=== PATIENT | female | born 1955 | race Caucasian/White ===

== ENCOUNTER 2020-11-17 17:40 | Emergency (ER) | payer BC, SELFPAY ==
--- NOTE | ~2020-11-17 | XR_ITS ---
EXAMINATION: XR ankle RT min 3V DATE: 11/17/2020 18:25 INDICATION: Right ankle injury and pain. TECHNIQUE: 4 views of right ankle were obtained. COMPARISON: None. FINDINGS: Bone alignment is normal. No fracture. There is diffuse osteopenia. There is mild ankle hernando nt osteoarthritis. There is mild osteoarthritis of talonavicular joint. There is ankle soft tissue sw elling. IMPRESSION: 1. Mild polyarticular osteoarthritis. Reviewed, dictated and finalized at location A.
--- NOTE | ~2020-11-17 | XR_ITS ---
EXAMINATION: XR foot RT min 3V DATE: 11/17/2020 18:26 INDICATION: Right foot injury and pain. TECHNIQUE: 4 views of right foot were obtained. COMPARISON: None. FINDINGS: Bone alignment is normal. No fracture. There is diffuse osteopenia. There is mild osteoarth ritis of first metatarsophalangeal joint and some of the interphalangeal and midfoot joints. IMPRESSION: 1. Mild polyarticular osteoarthritis. Reviewed, dictated and finalized at location A.
[2020-11-17 17:52] VITALS: BP 117/90; PULSE 80; RESP 14; TEMP 36.6; O2SAT 100
--- NOTE | 2020-11-17 18:01 | ED.LOWEXIN ---
HPI - Extremity Injury (Lower) General Chief Complaint: Extremity Injury, Lower Stated Complaint: Possible injury to right Ankle Time Seen by Provider: 11/17/20 18:01 Source: patient and RN notes reviewed Mode of arrival: ambulatory Limitations: no limitations History of Present Illness HPI Narrative: 65-year-old female presents to the [facility] after a near fall yesterday at physical therapy. Patient has been in a wheelchair, started walking recently and in physical therapy. Patient was walking between 2 bar when her knee gave out and she twisted her ankle. Swelling noted to the lateral aspect of right ankle. Reports pain across the dorsal aspect of the foot into her toes. Related Data Home Medications Medication Instructions Recorded Confirmed baclofen 10 mg PO BID PRN 11/17/20 11/17/20 biotin 5,000 mcg PO BID 11/17/20 11/17/20 cholecalciferol (vitamin D3) 125 mcg PO DAILY 11/17/20 11/17/20 [Vitamin D3] cyanocobalamin (vitamin B-12) 1 mcg SUBCUT Q3H6XD 11/17/20 11/17/20 duloxetine 20 mg PO DAILY 11/17/20 11/17/20 fluoride (sodium) [PreviDent 5000 1 applic DENTAL QAM AND QPM 11/17/20 11/17/20 Dry Mouth] gabapentin 800 mg PO QID 11/17/20 11/17/20 hydrocodone-acetaminophen 1 tablet PO BID PRN 11/17/20 11/17/20 methylprednisolone sod suc(PF) 1 g IV WEEKLY 11/17/20 11/17/20 omeprazole 40 mg PO DAILY 11/17/20 11/17/20 potassium chloride 20 meq PO DAILY 11/17/20 11/17/20 pyridoxine (vitamin B6) 100 mg PO DAILY 11/17/20 11/17/20 sulfamethoxazole-trimethoprim 1 tablet PO Q48H 11/17/20 11/17/20 thiamine HCl (vitamin B1) 100 mg PO DAILY 11/17/20 11/17/20 tramadol 50 mg PO BID PRN 11/17/20 11/17/20 turmeric root extract 500 mg PO DAILY 11/17/20 11/17/20 Allergies Allergy/AdvReac Type Severity Reaction Status Date / Time codeine Allergy Mild Itching Verified 11/17/20 18:30 Review of Systems Review of Systems: All systems reviewed & are unremarkable except as noted in HPI and below Constitutional: Constitutional: Reports no additional constitutional complaints, Denies chills and Denies fever(s) Eyes: Eyes: Reports no additional eye complaints ENT: Reports system reviewed and no additional complaints, except as documented Cardiovascular: Cardiovascular: Reports no additional cardiovascular complaints Respiratory: Respiratory: Reports no additional respiratory complaints Musculoskeletal: Musculoskeletal: Reports as per HPI, Reports arthralgias (right ankle) and Reports joint swelling (right ankle) Integumentary/Breasts: Skin/Breast: Reports system reviewed and no additional complaints, except as docu Neurologic: Reports numbness (Chronic bilateral legs) Psychiatric: Psychiatric: Reports no additional psychiatric complaints Allergic/Immunologic: Allergic/Immunologic: Reports no additional allergic/immunologic complaints [facility] Past Medical History Medical History (Updated 11/17/20 @ 19:19 by Chelsea Banegas) Depression H/O gastroesophageal reflux (GERD) Surgical History Surgical History (Updated 11/17/20 @ 19:19 by Chelsea Banegas) History of lumbar surgery Social History Social History (Updated 11/17/20 @ 19:20 by Chelsea Banegas) Living arrangements: with family Additional living arrangements comments: Occupation/Education: retired Gender identity (if verbalized by the patient): Female Comments At the time of my signature, I reviewed and agree with the nursing past medical, surgical, social, and family history. There is no relevant family history pertinent to the patient complaint. Exam Const: General: no acute distress and alert Nutritional Appearance: well nourished Orientation/consciousness: patient oriented x3 HENMT: Head: normal to inspection Neck: Neck: normal visual inspection, no lymphadenopathy and no meningeal signs Chest: Chest palpation & inspection: normal inspection of the chest Resp: Effort & Inspection: normal respiratory effort Auscultation: clear to ausc
== END 2020-11-17 18:48 | disposition home or self-care (01) ==
PROVIDERS: Emergency Provider Nurse Practitioner; PCP Internal Medicine
DX: S93.401A Sprain of unspecified ligament of right ankle, initial encounter (principal); S96.911A Strain of unspecified muscle and tendon at ankle and foot level, right foot, initial encounter; X50.9XXA Other and unspecified overexertion or strenuous movements or postures, initial encounter; K21.9 Gastro-esophageal reflux disease without esophagitis
CPT/HCPCS: 73610; 73630; 99203; G0463

== ENCOUNTER 2021-07-31 19:36 | Emergency (ER) | payer MEDICARE, BC, OTHER, SELFPAY ==
[2021-07-31 19:55] VITALS: BP 132/73; PULSE 90; RESP 16; TEMP 36.8; O2SAT 99
--- NOTE | 2021-07-31 20:21 | ED.FEMALEGU ---
HPI - Female Genitourinary General Chief complaint: Urogenital-Female Stated complaint: Urinary Problem Time Seen by Provider: 07/31/21 20:22 Source: patient and RN notes reviewed Mode of arrival: ambulatory Limitations: no limitations History of Present Illness HPI Narrative: 66-year-old female presents with concern for urinary tract infection. She reports symptoms started on Thursday and worsened today. She reports she has been getting frequent urinary tract infections at least once a month. She reports she has an appointment for a urology test next week. She reports her last infection was 1 month ago and she was on Macrobid, her antibiotic prior to that was Bactrim. She reports frequency, urgency, incontinence. Denies body aches, chills, fever, back pain, abdominal pain, nausea, vomiting MD elicited complaint: UTI Related Data Home Medications Medication Instructions Recorded Confirmed baclofen 10 mg PO BID PRN 11/17/20 07/31/21 biotin 5,000 mcg PO BID 11/17/20 07/31/21 cholecalciferol (vitamin D3) 125 mcg PO DAILY 11/17/20 07/31/21 [Vitamin D3] cyanocobalamin (vitamin B-12) 1 mcg SUBCUT Q3H6XD 11/17/20 07/31/21 duloxetine 20 mg PO DAILY 11/17/20 07/31/21 fluoride (sodium) [PreviDent 5000 1 applic DENTAL QAM AND QPM 11/17/20 07/31/21 Dry Mouth] gabapentin 800 mg PO QID 11/17/20 07/31/21 hydrocodone-acetaminophen 1 tablet PO BID PRN 11/17/20 07/31/21 methylprednisolone sod suc(PF) 1 g IV WEEKLY 11/17/20 07/31/21 omeprazole 40 mg PO DAILY 11/17/20 07/31/21 potassium chloride 20 meq PO DAILY 11/17/20 07/31/21 pyridoxine (vitamin B6) 100 mg PO DAILY 11/17/20 07/31/21 sulfamethoxazole-trimethoprim 1 tablet PO Q48H 11/17/20 11/17/20 thiamine HCl (vitamin B1) 100 mg PO DAILY 11/17/20 07/31/21 tramadol 50 mg PO BID PRN 11/17/20 07/31/21 turmeric root extract 500 mg PO DAILY 11/17/20 07/31/21 Allergies Allergy/AdvReac Type Severity Reaction Status Date / Time codeine Allergy Mild Itching Verified 07/31/21 20:16 Review of Systems Review of Systems: CONSTITUTIONAL: Denies malaise, chills, sweats, or fever. CARDIOVASCULAR: Denies chest pain, palpitations, or edema. RESPIRATORY: Denies cough or dyspnea. GASTROINTESTINAL: Denies abdominal pain, nausea, vomiting, diarrhea GENITOURINARY: Reports dysuria, frequency, urgency, hematuria. Denies flank pain or hematuria. SKIN: Denies rash or itching. MUSCULOSKELETAL: Denies back pain or myalgia. All systems reviewed & are unremarkable except as noted in HPI and below PMFSH Past Medical History Medical History (Updated 07/31/21 @ 20:28 by Chelsea Davis NP) Depression H/O gastroesophageal reflux (GERD) Surgical History Surgical History (Updated 11/17/20 @ 19:19 by Chelsea Banegas APRN) History of lumbar surgery Social History Social History (Updated 11/17/20 @ 19:20 by Chelsea Banegas APRN) Additional living arrangements comments: Gender identity (if verbalized by the patient): Female Comments At time of signature, agree with nursing past medical, surgical, social and family history. There is no relevant family history pertinent to the presenting complaint Exam Narrative: GENERAL: Well-appearing, well-nourished, and in no acute distress. HEAD: Normocephalic. EYES: PERRLA, conjunctivae clear. NECK: Supple. No lymphadenopathy CHEST: Clear to auscultation. No respiratory distress. HEART: Regular rate and rhythm. ABDOMEN: Soft, nontender upon palpation, nondistended, normal active bowel sounds, no palpable or pulsatile masses, no guarding. No CVA tenderness SKIN: Warm, dry, no rash. NEURO: Alert and oriented x3. PSYCH: Normal mood and affect Course Course Emergency Course: Patient is aware of diagnosis, understands and agrees to treatment plan. Anticipatory guidance given. Patient agrees to follow-up as directed and is aware of reasons to seek care at the emergency department. Portions of this record may have been created with voice recogn
== END 2021-07-31 20:40 | disposition home or self-care (01) ==
PROVIDERS: Emergency Provider Nurse Practitioner; PCP Internal Medicine
DX: N39.0 Urinary tract infection, site not specified (principal); K21.9 Gastro-esophageal reflux disease without esophagitis
CPT/HCPCS: 81003; 87077; 87086; 87088; 99213; G0463

== ENCOUNTER 2024-08-20 19:13 | Emergency (ER) | payer MEDICARE, SELFPAY ==
--- OUTSIDE RECORDS SUMMARY | 2024-08-20 19:16 | XMS_ITS | Encounter Summary ---
Author Organization [facility] Address [address] [place] [address] Phone Care Team Providers Care Humanities Department Chair Name Role Phone Shamir Sadler MD Primary Care Provider [phone] [phone] Reason for Visit * Reason Comments Medication Refill Encounter Details Date Type Department Care Team (Late st Contact Info) Description 08/17/2023 Refill [facility] [address] [place] [address] Prasanth Mart, EDUCATION REP, MANAGER RESIDENTIAL [address] [place] [address] Medication Refill Social History Tobacco Use Types Packs/Day Years Used Date Smoking Tobacco: Never Smokeless Tobacco: Never Alcohol Use Standard Drinks/Week Comments Never 0 (1 standard drink = 0.6 oz pur e alcohol) PHQ-2 Answer Date Recorded Total Score - Questions 1-9 6 09/14 Sexually Active Control Partners Comments Not Currently Male Comments Unknown Sex and Gender Information Value Date Recorded Sex Assigned at Female 10/27/2022 3:41 PM CDT Legal Sex Female 10:39 PM CDT Gender Identity Female 10/27/2022 3:41 PM CDT Sexual Orientation Not on file documented as of this encounter Plan of Treatment Not on file documented as of this encounter Goals Goal Patient Goal Type Associated Problems Recent Progress Patient-Stated? 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 Goal/Objective: Increase coping skills. Anticipated Time Frame for Goal Completion: 6 months Goal Reviewed with: patient Readiness to change: Ready to change Department associated with goal: [facility] Steps to achieve goal: will identify at least two ways their behavioral health impacts their physical health and vice versa. will identify at least two ways/skills/habits to reduce exacerbation of co- occurring disorders. will implement at least one new way/skill/habit to reduce exacerbation of co-occurring disorders Will attend individual and/or group session at least 1x/month at least 6 sessions documented as of this encounter Visit Diagnoses Not on filedocumented in this encounter Additional Health Concerns Assessment Noted Time PHQ-9 Depression Total Score: 6 10/08/19 10:00 AM CDT documented as of this encounter Care Teams Humanities Department Chair Relationship Specialty Start Date End Date Shamir Sadler MD [facility] [place] [address] PCP - General Internal Medicine 08/19/22 documented as of this encounter
--- OUTSIDE RECORDS SUMMARY | 2024-08-20 19:16 | XMS_ITS | Clinical Summary ---
Author Organization [facility] Address [address] [place] [address] Care Team Providers Care Photography Spotter Name Role Phone Unavailable Primary Care Provider Unavailabl e Allergies Active Allergy Reactions Criticality Noted Date Comments Codeine Itching Medium 09/03/2018 Medications Calcium-Phosphorus- Vitamin D 250-107-500 MG-MG-UNIT chewable tablet Chew. Active Biotin 1000 MCG tablet Take 5,000 mcg by mouth. Active vitamin B-12 (CYANOCOBALAMIN) 1000 MCG tablet Take 1,000 mcg by mouth. Active ondansetron ODT (ZOFRAN-ODT) 4 MG disintegrating tablet Take 1 tablet (4 mg total) by mouth every 12 (twelve) hours as needed for nausea or vomiting for up to 30 doses. 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 Immunizations Immunization Administration Dates Next Due Influenza, Unspecified 09/21/2018(Deferr ed: Received outside of this facility) Social History Tobacco Use Types Packs/Day Years Used Date Smoking Tobacco: Never Alcohol Use Standard Drinks/Week Comments Not Currently 0 (1 standard drink = 0.6 oz pur e alcohol) Comments Unknown Sex and Gender Information Value Date Recorded Sex Assigned at Not on file Legal Sex Female 12:05 PM EDT Gender Identity Not on file Sexual Orientation Not on file Last Filed Vital Signs Vital Sign Reading Time Taken Comments Blood Pressure 125/81 09/29/2018 7:26 AM CDT Pulse 101 09/29/2018 7:26 AM CDT Temperature 35.9 C (96.7 F) 09/29/2018 7:15 AM CDT Respiratory Rate 18 09/29/2018 7:15 AM CDT Oxygen Saturation 100% 09/29/2018 7:15 AM CDT Inhaled Oxygen Concentration - - Weight 66.3 kg (146 lb 1.6 oz) 09/26/2018 6:47 A M CDT Height 170.2 cm (5' 7) 09/20/2018 8:36 PM CDT Body Mass Index 22.88 09/20/2018 8:36 PM CDT Plan of Treatment Not on file Advance Directives * Full Resuscitation (Latest Code Status on File) Date Activated Date Inactivated Comments 09/20/2018 9:24 PM 09/29/2018 6:43 PM * Full Resuscitation Date Activated Date Inactivated Comments 09/03/2018 5:46 PM 09/14/2018 10:19 PM
--- OUTSIDE RECORDS SUMMARY | 2024-08-20 19:16 | XMS_ITS | Encounter Summary ---
Author Organization [facility] Address [address] [place] [address] [place] [address] Care Team Providers Care Bulb Sorter Name Role Phone Shamir Sadler MD Primary Care Provider [phone] Encounter Details Date Type Department Care Team (Late st Contact Info) Description 01/23/2021 [facility] Unknown, Provider Social History Tobacco Use Types Packs/Day Years Used Date Smoking Tobacco: Never Smokeless Tobacco: Never Alcohol Use Standard Drinks/Week Comments No 0 (1 standard drink = 0.6 oz pur e alcohol) Comments Unknown Sex and Gender Information Value Date Recorded Sex Assigned at Not on file Legal Sex Female 6:24 AM HHAS Gender Identity Not on file Sexual Orientation Not on file documented as of this encounter Functional Status * Is person deaf or have serious hearing difficulty? Answer Date of Assessment Author No 09/15/2018 7:28 AM Debbi Amor RN * Is person blind or have serious difficulty seeing? Answer Date of Assessment Author No 09/15/2018 7:28 AM Debbi Amor RN * Does person have serious difficulty walking/climbing stairs? Answer Date of Assessment Author Yes 09/15/2018 7:28 AM Debbi Amor RN * Does person have difficulty dressing/bathing? Answer Date of Assessment Author Yes 09/15/2018 7:28 AM Debbi Amor RN * Does person have difficulty doing errands alone? Answer Date of Assessment Author Yes 09/15/2018 7:28 AM Debbi Amor RN documented as of this encounter Mental Status * Does person have difficulty concentrating/remembering/making decisions? Answer Entry Date Author No 09/15/2018 7:28 AM Debbi Amor RN documented in this encounter Plan of Treatment Not on file documented as of this encounter Visit Diagnoses Not on filedocumented in this encounter Care Teams Bulb Sorter Relationship Specialty Start Date End Date Shamir Sadler MD PCP - General Internal Medicine 12/06/19 documented as of this encounter
--- OUTSIDE RECORDS SUMMARY | 2024-08-20 19:16 | XMS_ITS | Encounter Summary ---
Author Organization [facility] Address [address] [place] [address] 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 Answer Entry Date Author No 09/15/2018 7:28 AM CDT Debbi Werner RN documented in this encounter Plan of Treatment Not on file documented as of this encounter Visit Diagnoses Not on filedocumented in this encounter Additional Health Concerns Infection Onset Date Last Indicated Resolved Time COVID-19 Under Investigation 09/30/2019 09/30/2019 09/30/2019 10:06 PM CDT documented as of this encounter Care Teams Chargeback Analyst Relationship Specialty Start Date End Date Shamir Sadler MD PCP - General Internal Medicine 12/06/19 documented as of this encounter
--- OUTSIDE RECORDS SUMMARY | 2024-08-20 19:16 | XMS_ITS | Encounter Summary ---
Author Organization [facility] Address [address] [place] [address] 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
--- OUTSIDE RECORDS SUMMARY | 2024-08-20 19:16 | XMS_ITS | Encounter Summary ---
Author Organization [facility] Address [address] [place] [address] [place] [address] Care Team Providers Care Tobacco Prevention Health Educator Name Role Phone Shamir Sadler MD Primary Care Provider [phone] [phone] Encounter Details Date Type Department Care Team (Late st Contact Info) Description 06/29/2020 [facility] Unknown, Provider Social History Tobacco Use Types Packs/Day Years Used Date Smoking Tobacco: Never Smokeless Tobacco: Never Alcohol Use Standard Drinks/Week Comments No 0 (1 standard drink = 0.6 oz pur e alcohol) Comments Unknown Sex and Gender Information Value Date Recorded Sex Assigned at Not on file Legal Sex Female 6:24 AM YARN MAN Gender Identity Not on file Sexual Orientation [...] on filedocumented in this encounter Care Teams Tobacco Prevention Health Educator Relationship Specialty Start Date End Date Shamir Sadler MD PCP - General Internal Medicine 12/06/19 documented as of this encounter
--- OUTSIDE RECORDS SUMMARY | 2024-08-20 19:16 | XMS_ITS | Encounter Summary ---
Author Organization [facility] Address [address] [place] [address] 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
--- OUTSIDE RECORDS SUMMARY | 2024-08-20 19:16 | XMS_ITS | Clinical Summary ---
Author Organization [facility] Address [address] [place] [address] Phone Care Team Providers Care Medical Scientific Officer Name Role Phone Shamir Sadler MD Primary Care Provider [phone] [phone] Allergies Active Allergy Reactions Criticality Noted Date Comments Codeine Itching Low 09/20/2013 Medications olmesartan (BENICAR) 20 mg tablet Take 10 mg by mouth daily. Active predniSONE (DELTASONE) 20 mg tablet Start 09/21. One twice a day for 4 days and one daily 14 Tab None 4 Active HYDROcodone-mariaelena taminophen (NORCO) 5-325 mg tablet Take 1 Tab by mouth every 4 hours as needed for Pain, Moderate (dose may be doubled if tolerated.). Take p.c. 20 Tab 0 4 Active diazepam (VALIUM) 5 mg tablet Take 1 Tab by mouth 3 times daily as needed (one half or one 3 times a day when necessary muscle relaxation). 15 Tab 0 4 Active Active Problems No known active problems Social History Tobacco Use Types Packs/Day Years Used Date Smoking Tobacco: Never Alcohol Use Standard Drinks/Week Comments No 0 (1 standard drink = 0.6 oz pur e alcohol) Comments No Sex and Gender Information Value Date Recorded Sex Assigned at Not on file Legal Sex Female 5:44 AM FOUR H CLUB AGENT Gender Identity Not on file Sexual Orientation Not on file Last Filed Vital Signs Vital Sign Reading Time Taken Comments Blood Pressure 114/76 09/07/2021 4:23 PM CDT Pulse 78 09/07/2021 4:23 PM CDT Temperature 36.9 C (98.5 F) 09/07/2021 4:23 PM CDT Respiratory Rate 16 09/07/2021 4:23 PM CDT Oxygen Saturation 98% 09/07/2021 4:23 PM CDT Inhaled Oxygen Concentration - - Weight 63 kg (139 lb) 09/07/2021 4:23 PM CDT Height 170.2 cm (5' 7) 09/07/2021 4:23 PM CDT Body Mass Index 21.77 09/07/2021 4:23 PM CDT Plan of Treatment Health Maintenance Due Date Last Done Comments DIABETES ANNUAL RETINAL EXAM 1974 DIABETES MICROALBUMIN ANNUAL SCREEN 1974 LDL CHOLESTEROL ANNUAL 1974 PNEUMOCOCCAL VACCINE 50+ YEARS (1 of 2 - PCV) 05/11/18 76 BREAST CANCER SCREENING 1996 COLORECTAL SCREENING 2001 Colorectal Cancer Screening 2001 FIT-DNA Q 3 years 2001 FIT/FOBT Q 1 year 2001 Flex Sig/CT Colonography Q 5 years 2001 ZOSTER VACCINE (2 of 3) 04/19/2015 02/22/2015 DIABETES ANNUAL FOOT EXAM 01/01/2018 01/01/2017 DTAP/TDAP/TD VACCINES (2 - Td or Tdap) 03/14/2018 DIABETES HBA1C Q 6 MONTHS 12/01/2020 05/31/2020 OSTEOPOROSIS SCREENING 2021 INFLUENZA VACCINE (#1) 2023 RSV VACCINE (60+ or ) (1 - 1-dose 75+ series) 2031 Insurance MEDICARE Care Teams Medical Scientific Officer Relationship Specialty Start Date End Date Shamir Sadler MD PCP - General Internal Medicine 09/20/13
--- OUTSIDE RECORDS SUMMARY | 2024-08-20 19:16 | XMS_ITS | Continuity of Care Document ---
Author Organization [facility] Address [address] [place] [address] Phone Care Team Providers Care Camper Assembler Name Role Phone Shantanu Horne MD Unavailable Unavailable Procedures Procedure Date MRI OF NECK, SPINE W/O CONTRAST 020 MRI, SPINAL CANAL W/O CONTRAST 20 Advance Directives Directive Yes / No Effective Date File Name No Information Encounters Encounter Description Practice Location Reason(s) For Visit Diagnoses Date Provider Providers Copied on Encounter [facility], [address], [place], [place], [id number], [place] tel:[phone] [facility] No Information Ozzie Fournier. [address] [place], [place], [id number], [place]. tel:[phone] Referring Provider: John Majano, [facility] [address] , [place], [address]. tel:[phone] Family History Family Member Type Diagnosis Age At Onset No Information Payers Payer name Insurance type Covered constitution party ID Authoriza tion(s) [facility] [id number] Social History Type Description Quantity Date Captured Comments Sex Female Smoking Status No Information Chief Complaint And Reason For Visit No Information Reason For Referral Reason For Referral No Information History Of Present Illness Encounter Date Complaint History Of Prese nt Illness No Information Functional Status Date Functional Assessmen t No Information Instructions Date Instruction Additional Infor mation No Information Assessments Type Assessment Date No Information Patient Care Teams Name Effective Dates (start - stop) Status Members No Information
--- OUTSIDE RECORDS SUMMARY | 2024-08-20 19:16 | XMS_ITS | Encounter Summary ---
Author Organization [facility] Address [address] [place] [address] [place] [address] Care Team Providers Care Innersole Fitter Name Role Phone Shamir Sadler MD Primary Care Provider [phone] Encounter Details Date Type Department Care Team (Late st Contact Info) Description 10/06/2018 [facility] DEPT Unknown, Provider Social History Tobacco Use Types Packs/Day Years Used Date Smoking Tobacco: Never Smokeless Tobacco: Never Alcohol Use Standard Drinks/Week Comments No 0 (1 standard drink = 0.6 oz pur e alcohol) Comments Unknown Sex and Gender Information Value Date Recorded Sex Assigned at Not on file Legal Sex Female 6:24 AM AIRCRAFT NAVIGATOR Gender Identity Not on file Sexual Orientation [...] documented as of this encounter Care Teams Innersole Fitter Relationship Specialty Start Date End Date Shamir Sadler MD PCP - General Internal Medicine 12/06/19 documented as of this encounter
--- OUTSIDE RECORDS SUMMARY | 2024-08-20 19:16 | XMS_ITS | Encounter Summary ---
Author Organization [facility] Address [address] [place] [address] Phone Care Team Providers Care Electric Gas Appliances Demonstrator Name Role Phone Shamir Sadler MD Primary Care Provider [phone] Reason for Visit * Reason Comments Medication Refill Encounter Details Date Type Department Care Team (Late st Contact Info) Description 04/25/2024 Refill [facility] [address] [place] [address] Prasanth Mart, INTER COM INSTALLER, WHARF TENDER [address] [place] [address] Medication Refill Social History Tobacco Use Types [...] Health Behavioral Health On track(2022 9:40 AM MEDIA SALES EXECUTIVE) Yes Wilfrid Patel, AUTO PHONE INSTALLER Note: I need help coping with family drama and my chronic pain, setting and maintaining healthy boundaries. Goal/Objective: Increase coping skills. Anticipated Time Frame for Goal Completion: 6 months Goal Reviewed with: patient Readiness to change: Ready to change Department associated with goal: [facility] Steps to achieve goal: [...] documented as of this encounter Care Teams Electric Gas Appliances Demonstrator Relationship Specialty Start Date End Date Shamir Sadler MD [facility] [place] [address] PCP - General Internal Medicine 08/19/22 documented as of this encounter
--- OUTSIDE RECORDS SUMMARY | 2024-08-20 19:16 | XMS_ITS | Encounter Summary ---
Author Organization [facility] Address [address] [place] [address] Phone Care Team Providers Care Microsoft Crm Developer Name Role Phone Shamir Sadler MD Primary Care Provider [phone] Reason for Visit * Reason Comments Medication Refill Encounter Details Date Type Department Care Team (Late st Contact Info) Description 05/03/2023 Refill [facility] [address] [place] [address] Prasanth Mart, WOOD SCALER, WHOLESALE DIAMOND BROKER [address] [place] [address] Medication Refill Social History Tobacco Use Types [...] Health Behavioral Health On track(2022 9:40 AM WAX BLENDER) Yes Wilfrid Patel, CHARGE AUDITOR Note: I need help coping with family drama and my chronic pain, setting and maintaining healthy boundaries. Goal/Objective: Increase coping skills. Anticipated Time Frame for Goal Completion: 6 months Goal Reviewed with: patient Readiness to change: Ready to change Department associated with goal: [facility] Steps to achieve [...] documented as of this encounter Care Teams Microsoft Crm Developer Relationship Specialty Start Date End Date Shamir Sadler MD [facility] [place] [address] PCP - General Internal Medicine 08/19/22 documented as of this encounter
--- OUTSIDE RECORDS SUMMARY | 2024-08-20 19:16 | XMS_ITS | Encounter Summary ---
Author Organization [facility] Address [address] [place] [address] [place] [address] Care Team Providers Care Resident Assistant Name Role Phone Shamir Sadler MD Primary Care Provider [phone] Encounter Details Date Type Department Care Team [...] on file Legal Sex Female 6:24 AM MANAGER SALES SUPPORT Gender Identity Not on file Sexual Orientation [...] documented as of this encounter Care Teams Resident Assistant Relationship Specialty Start Date End Date Shamir Sadler MD PCP - General Internal Medicine 12/06/19 documented as of this encounter
--- OUTSIDE RECORDS SUMMARY | 2024-08-20 19:16 | XMS_ITS | Encounter Summary ---
Author Organization [facility] Address [address] [place] [address] Phone Care Team Providers Care Music Engraver Name Role Phone Shamir Sadler MD Primary Care Provider [phone] Reason for Visit * Reason Comments Medication Refill Encounter Details Date Type Department Care Team (Late st Contact Info) Description 05/28/2023 Refill [facility] [address] [place] [address] Prasanth Mart, PADDED BOX SEWER, AIRFRAME TECHNICIAN [address] [place] [address] Medication Refill Social History Tobacco Use Types [...] Health Behavioral Health On track(2022 9:40 AM VIDEO MANAGER) Yes Wilfrid Patel, CALIBRATION ENGINEER Note: I need help coping with family drama and my chronic pain, setting and maintaining healthy boundaries. Goal/Objective: Increase coping skills. Anticipated Time Frame for Goal Completion: 6 months Goal Reviewed with: patient Readiness to change: Ready to change Department associated with goal: [facility] Steps to achieve [...] documented as of this encounter Care Teams Music Engraver Relationship Specialty Start Date End Date Shamir Sadler MD [facility] [place] [address] PCP - General Internal Medicine 08/19/22 documented as of this encounter
--- OUTSIDE RECORDS SUMMARY | 2024-08-20 19:16 | XMS_ITS | Encounter Summary ---
Author Organization [facility] Address [address] [place] [address] [place] [address] Care Team Providers Care Personal Lines Account Executive Name Role Phone Shamir Sadler MD Primary Care Provider [phone] Encounter Details Date Type Department Care Team (Late st Contact Info) Description 10/11/2019 Lab Requisition [facility] Pathology Lab [address] [place] [address] Natividad Lara MD [address] [facility] [place] [address] Illness, unspecified Social History Tobacco Use Types Packs/Day Years Used Date Smoking Tobacco: Never Smokeless Tobacco: Never Alcohol Use Standard Drinks/Week Comments No 0 (1 standard drink = 0.6 oz pur e alcohol) Comments Unknown Sex and Gender Information Value Date Recorded Sex Assigned at Not on file Legal Sex Female 6:24 AM NANNY CAREGIVER Gender Identity Not on file Sexual Orientation Not on file COVID-19 Exposure Response Date Recorded In the last month, have you been in contact with someone who was confirmed or suspected to have Coronavirus / COVID-19? No / Unsure 09/30/2019 8:16 AM CDT documented as of this encounter Functional Status * Is person deaf or have serious hearing difficulty? Answer Date of Assessment Author No 09/15/2018 7:28 AM CDT Debbi Werner RN * Is person blind or have serious difficulty seeing? Answer Date of Assessment Author No 09/15/2018 7:28 AM CDT Debbi Werner RN * Does person have serious difficulty walking/climbing stairs? Answer Date of Assessment Author Yes 09/15/2018 7:28 AM CDT Debbi Werner RN * Does person have difficulty dressing/bathing? Answer Date of Assessment Author Yes 09/15/2018 7:28 AM CDT Debbi Werner RN * Does person have difficulty doing errands alone? Answer Date of Assessment Author Yes 09/15/2018 7:28 AM CDT Debbi Werner RN documented as of this encounter Mental Status * Does person have difficulty concentrating/remembering/making decisions? Answer Entry Date Author No 09/15/2018 7:28 AM CDT Debbi Werner RN documented in this encounter Plan of Treatment Not on file documented as of this encounter Procedures Procedure Name Priority Date/Time Associated Diagnosis Comments ELECTRON MICROSCOPY (SLU) Routine 10/11/2019 9:47 AM CDT Illness, unspecified documented in this encounter Results * ELECTRON MICROSCOPY (SLU) (10/11/2019 9:47 AM CDT) Case Report Gynecologic Cytology Report Case: [id number] Authorizing Provider: Natividad Lara MD Collected: 10/11/2019 09:47 AM Ordering Location: [facility] Care Pathology Lab Received: 10/11/2019 02:29 PM First Screen: Shamir De La Cruz Specimen: EM OTHER - SLU, Nerve Biopsy, There is one piece that is approx. 4.7 cm x 0.3 cm x 0.2 cm 10/14/2019 8:00 AM CDT [facility] PATH[facility] Electron Microscopy Technical Summary # of Block(s) cut: 4 # of Glomeruli found: NA # of Glomeruli photographed: NA 10/14/2019 8:00 AM CDT [facility] PATH[facility] Embedded Images - EM 10/14/2019 8:00 AM CDT [facility] PATH[facility] Pathology/Cytolo gy BIOPSY OF NERVE / Unknown 10/11/2019 9:47 AM CDT 10/11/2019 2:29 PM CDT Natividad Lara MD LAB - PATHOLOGY/CYTOLOGY ORDERAB LES Final Result [facility] PATHOLOGY LAB [address] [facility] [phone] documented in this encounter Visit Diagnoses Diagnosis Illness, unspecified documented in this encounter Care Teams Personal Lines Account Executive Relationship Specialty Start Date End Date Shamir Sadler MD PCP - General Internal Medicine 12/06/19 documented as of this encounter
--- OUTSIDE RECORDS SUMMARY | 2024-08-20 19:16 | XMS_ITS | Referral Summary ---
Author Organization Address [address] [place] [address] Care Team Providers Care Alternative Financing Specialist Name Role Phone Shamir Sadler MD Primary Care Provider + Shamir Sadler MD Unavailable [phone] Ron Filed MD Unavailable [phone] Shamir Khalil MD Unavailable Jaya Gaming NP Unavailable [phone] Encounters Date Type Department Care Team Description 08/17/2024 9:00 AM CDT - 08/17/2024 11:59 PM CDT Hospital Encounter [facility] [address] [place] [id number] Screening mammogram, encounter for Discharge Disposition: Discharge to home or self care 05/26/2024 11:00 AM CDT - 05/26/2024 11:59 PM CDT Hospital [facility] [address] [place] [address] Jaya Gaming NP Presence of intrathecal pump (Primary Dx); Chronic bilateral low back pain with right-sided sciatica; Lumbar post-laminectomy syndrome; Cervical spinal stenosis; Other chronic pain Discharge Disposition: Discharge to home or self care 05/24/2024 Results Follow-Up [facility] [address] [place] [address] Alicia Key NP XR Chest Pa Lateral 2 Views 05/23/2024 5:45 PM CDT - 05/23/2024 11:59 PM CDT Hospital Encounter [facility] [address] [place] [address] Lower respiratory infection Discharge Disposition: Discharge to home or self care 05/23/2024 4:15 PM CDT Office Visit [facility] [address] [place] [address] Jael Rain NP Lower respiratory infection (Primary Dx) from Last 3 Months Allergies Active Allergy Reactions Criticality Noted Date Comments Codeine Itching Low Medications PREVIDENT 5000 DRY MOUTH 1.1 % gel Take 1 application (deactivated) by mouth 2 (two) times a day 7 Active multivitamin tabletIndicatio ns:Vitamin Deficiency Prevention Take 1 tablet by mouth 2 (two) times a day. 60 tablet 5 8 Active POTASSIUM CHLORIDE ER 20 mEq CR tablet Take 1 tablet (20 mEq total) by mouth daily 0 9 Active cyanocobalamin (Vitamin B-12) 1,000 mcg/mL injection Inject 1 mL (1,000 mcg total) into the muscle as instructed every 30 (thirty) days Active Horizant 600 mg tablet extended release Take 1 tablet by mouth 2 (two) times a day Some days patient does not need it. 1 Active pyridoxine, vitamin B6, 50 mg capsule Take 50 mg by mouth daily Active DULoxetine DR (CYMBALTA) 60 mg capsule Take 1 capsule (60 mg total) by mouth daily 3 Active romosozumab-aqq g (EVENITY SUBQ) Inject under the skin every 30 (thirty) days Active solifenacin (VESIcare) 10 mg tablet Take 1 tablet (10 mg total) by mouth daily 4 Active cevimeline (EVOXAC) 30 mg capsule 4 Active HYDROmorphone, bulk, (DILAUDID) 100 % powder by intrathecal route continuous 0 4 Active traMADoL (ULTRAM) 50 mg tablet Take 1 tablet (50 mg total) by mouth every 6 (six) hours as needed for pain 10 tablet 4 Active methenamine (HIPREX) 1 gram tablet Active Active Problems Problem Noted Date Diagnosed Date Urinary frequency 11/24/2023 Small bowel obstruction 09/30/2023 Leukocytosis 09/30/2023 Hypertension 09/30/2023 Chronic pain 09/30/2023 Cervical spinal stenosis 12/11/2022 Radiculopathy, cervical 12/11/2022 Gastroesophageal reflux disease 11/13/2022 Dysphagia 11/13/2022 Major depressive disorder, recurrent episode, mo derate 10/07/2022 Pyelonephritis 09/08/2022 Chronic bilateral low back pain with right-sided sciatica 09/07/2022 Presence of intrathecal pump 06/11/2022 Lumbar post-laminectomy syndrome 11/07/2021 Recurrent UTI 07/04/2021 Age-related osteoporosis with current pathologic al fracture 11/28/2020 Hyperlipidemia 09/07/2015 Overview (06/20/2016): Hyperlipidemia Type 2 diabetes mellitus 02/22/2015 Overview (06/20/2016): Diabetes Herpes zoster 09/30/2013 Overview (06/20/2016): Shingles Benign hypertension 07/30/2013 Overview (06/19/2016): BENIGN HYPERTENSION Resolved Problems Problem Noted Date Diagnosed Date Resolved Date Lumbar radicular pain 08/18/20222022 Left displaced femoral neck fracture 08/03/2022 09/07/2022 Fall, initial encounter 08/02/202208/15 Screening for malignant neoplasm of colon 04/25/2022 09/07/2022 Overview (04/25/2022): Added automatically from request for surgery [id number] Chest pain, unspecified type 03/24/2022 09/07/2022 History of MRSA infection 06/11/2021 Marginal ulcer 03/04/2021 08/30/2021 Overview (03/04/2021): Added automatically from request for surgery [id number] Drug-induced diabetes mellitus 01/09/2021 09/07/2022 Disorder of peripheral nervous system 06/01/2020 09/07/2022 Overview (02/26/2021): Added automatically from request for surgery [id number] Mild protein-calorie malnutrition (CMS/HCC) 05/22/2020 08/30/2021 Adhesive arachnoiditis 07/06/201909/07 Bilateral leg pain 07/06/2019 Bilateral foot-drop 07/06/2019 09/08/19 Acute exacerbation of chronic low back pain 03/13/2019 09/07/2022 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 03/13/2019 09/07/2022 Surgical site infection 09/20/201808/15 Infection of lumbar spine 09/03/2018 Adrenal cortex insufficiency 07/28/2018 09/07/2022 Morbid obesity due to excess calories 12/14/2017 05/22/2020 Overview (12/14/2017): Added automatically from request for surgery [id number] Cholecystitis 12/14/2017 02/24/2018 Overview (12/14/2017): Added automatically from request for surgery [id number] Morbid obesity 11/14/2017 02/22/2018 Calculus of gallbladder with out cholecystitis without obstruction 01/01/2017 02/22/2018 Medication management 08/29/20162017 Healthcare maintenance 08/29/201602/22 Biliary calculus 08/21/2016 09/07/2022 Obstructive sleep apnea syndrome 02/22/2015 09/07/2022 Overview (06/20/2016): IJEOMA - Obstructive sleep apnea Diverticular disease of colon 04/21/2014 09/07/2022 Overview (06/20/2016): Diverticulosis of colon Arthralgia of multiple joints 07/30/2013 09/07/2022 Overview (06/19/2016): Polyarthralgia Insomnia 07/30/2013 09/07/2022 Overview (06/19/2016): INSOMNIA NEC Ear ringing 08/11/2012 09/07/2022 Abnormal brain scan 08/11/2012 09/08/19 23 Median nail dystrophy 09/01/20112022 Immunizations Immunization Administration Dates Next Due Tdap 03/14/2008 ZOSTER LIVE 02/22/2015 Social History Tobacco Use Types Packs/Day Years Used Date Smoking Tobacco: Never Passive Smoke Exposure: Past Smokeless Tobacco: Never Tobacco Cessation:Counseling Given: Not Answered Alcohol Use Standard Drinks/Week Comments No 0 (1 standard drink = 0.6 oz pur e alcohol) [employer] Utilities Answer Date Recorded In the past 12 months has [employer]click, gas, oil, or water [employer] threatened to shut off services in your home? No 09/30/2023 Social Connection and Isolat ion Panel [NHANES] Answer Date Recorded In a typical week, how many times do you talk on the phone with family, friends, or neighbors? More than three times a week 09/30/2023 How often do you get togethe r with friends or relatives? More than three times a week 09/30/2023 How often do you attend chur or yarsanism services? More than 4 times per year 09/30/2023 Do you belong to any clubs o r organizations such as religion groups, unions, fraternal or athletic groups, or school groups? Yes 09/30/2023 How often do you attend meet ings of the clubs or organizations you belong to? More than 4 times per year 09/30/2023 Are you , , di vorced, , never , or living with a partner? 09/30/2023 AUDIT-C Answer Date Recorded Q1: How often do you have a drink containing alcohol? Never 12/16/2023 Q2: How many drinks containi ng alcohol do you have on a typical day when you are drinking? Patient does not drink 4 Q3: How often do you have si x or more drinks on one occasion? Never 12/16/2023 Overall Financial Resource Strain (CARDIA) Answe r Date Recorded How hard is it for you to pa y for the very basics like food, housing, medical care, and heating? Not hard at all 09/30/2023 PHQ-2 Answer Date Recorded PHQ-2 Total Score (If total score is 3 or more points, staff should administer the PHQ-9) 2 06/27/2019 Hunger Vital Sign Answer Date Recorded Within the past 12 months, y ou worried that your food would run out before you got the money to buy more. Never true 09/30/19 24 Within the past 12 months, t he food you bought just didn't last and you didn't have money to get more. Never true 09/30/2023 PRAPARE - Transportation Answer Date Re corded In the past 12 months, has l ack of transportation kept you from medical appointments or from getting medications? No 09/13 In the past 12 months, has l ack of transportation kept you from meetings, work, or from getting things needed for daily living? No 09/30/2023 Housing Stability Vital Sign Answer Filipe e Recorded In the last 12 months, was t here a time when you were not able to pay the mortgage or rent on time? No 09/08/2022 In the last 12 months, how many places have you lived? 1 09/08/2022 In the last 12 months, was t here a time when you did not have a steady place to sleep or slept in a group home (including now)? No 09/08/2022 Housing Stability Vital Sign Answer Filipe e Recorded In the last 12 months, was t here a time when you were not able to pay the mortgage or rent on time? No 09/30/2023 In the past 12 months, how m any times have you moved where you were living? 0 09/30/2023 At any time in the past 12 m [facility], were you homeless or living in a group home (including now)? No 09/30/2023 Personal Safety Answer Date Recorded Have you ever been in or are you currently in a harmful physical or emotional relationship or is someone making you feel afraid or unsafe? Denies 12/16/2023 Education Answer Date Recorded What is the highest level of school you have completed or the highest degree you have received? Associate degree: academic program 08/04/2022 Comments No Sex and Gender Information Value Date Recorded Sex Assigned at Not on file Legal Sex Female 8:03 PM PRIMING POWDER PREMIX BLENDER Gender Identity Female 05/15/2020 2:34 PM PRIMING POWDER PREMIX BLENDER Sexual Orientation Straight 05/15/2020 2: 34 PM PRIMING POWDER PREMIX BLENDER Occupation Industry Job Start Date Job End Date Not on file Not on file Not on file Not on file Last Filed Vital Signs Vital Sign Reading Time Taken Comments Blood Pressure 154/88 05/26/2024 11:31 AM CDT Pulse 61 05/26/2024 11:31 AM CDT Temperature 36.6 C (97.8 F) 05/23/2024 4:25 PM CDT Respiratory Rate 16 05/26/2024 11:31 AM CDT Oxygen Saturation 100% 05/26/2024 11:31 AM CDT Inhaled Oxygen Concentration - - Weight 63 kg (139 lb) 08/17/2024 9:16 AM CDT Height 170.2 cm (5' 7) 08/17/2024 9:16 AM CDT Body Mass Index 21.77 08/17/2024 9:16 AM CDT Plan of Treatment Not on file Medical Devices Implanted Type Area Foreign Broadcast Specialist Device Identifier Shelf Expiration Date Model / Serial / Lot Medtronic Synchromed Pain Pump Intrathecal Pain Pump Right: Stomach [employer] [id number] Seamguard Bioabsorbable Reinforcement Staple Line Sterile Latex Free - [id number] Implanted:Qty: 1 on 02/22/2018 by Maureen Valencia MD at [facility] [employer] 07/13/2020 [id number] / / [id number] [employer] [id number] Seamguard Bioabsorbable Reinforcement Staple Line Sterile Latex Free - [id number] Implanted:Qty: 1 on 02/22/2018 by Maureen Valencia MD at [facility] [employer] 08/14/2019 [id number] / / [id number] [employer] [id number] Seamguard Bioabsorbable Reinforcement Staple Line Sterile Latex Free - [id number] Implanted:Qty: 1 on 02/22/2018 by Maureen Valencia MD at [facility] [employer] 08/14/2019 [id number] / / [id number] Med[employer]onic Inc Synchromed Ii .78in [place]undidge Filter Mesh Pouch Programmable 8637-20 - [id number] - [id number] Implanted:Qty: 1 on 01/23/2022 by Shamir Khalil MD at Left: Abdomen Med[employer] Inc 06/28/2023 8637-20 / [id number] / Med[employer]onic Inc Tyrx 3.35x3in Large Envelope Absorbable Polyarylate Minocycline [id number] - [id number] Implanted:Qty: 1 on 01/23/2022 by Shamir Khalil MD at Left: Abdomen [employer] Inc [id number] 11/08/2022 [id number] / / [id number] [employer] Self-Centering 45mm 28mm Hip Femur Head Bipolar Sterile Cristina [id number] - [id number] Implanted:Qty: 1 on 08/04/2022 by Ron Field MD at [facility] Left: Hip [employer] 12/13/2026 [id number] / / [id number] [employer] Articul/Leonel 28mm Hip +1.5mm 02/26 Taper Head Femoral Cocr Sterile Latex Free 1365-11-000 - [id number] Implanted:Qty: 1 on 08/04/2022 by Ron Field MD at [facility] Left: Hip [employer] 05/14/2027 0 / / [id number] [employer] Actis Collar Hip 7 Standard Offset Stem Femoral [id number] - [id number] Implanted:Qty: 1 on 08/04/2022 by Ron Field MD at [facility] Left: Hip [employer] 03/15/2032 [id number] / / [id number] Medtronic Inc Ascenda 4fr .5mm 139.7cm 66cm 2 Piece Inner Lumen Radiopaque 8781 - [id number] Implanted:Qty: 1 on 09/17/2022 by Shamir Khalil MD at [employer] 06/12/2024 8781 / / [id number] Explanted Type Area Foreign Broadcast Specialist Device Identifier Shelf Expiration Date Model / Serial / Lot Med[employer]onic Inc Ascenda 4fr .5mm 114cm 86cm 2 Piece Connector Pin Flexible Closed 8780 - [id number] Implanted:Qty: 1 on 01/23/2022 by Shamir Khalil MD at Explanted:Qty: 1 on 09/17/2022 by Shamir Khalil MD at N/A: Spine Thoracic [employer] Inc 01/04/2024 8780 / / [id number] Procedures Procedure Name Priority Date/Time Associated Diagnosis Comments SCREENING MAMMOGRAM BILATERAL W HERNESTO Schedule Routine, Read Routine (OP Routine) 08/17/2024 9:26 AM CDT Screening mammogram, encounter for XR CHEST PA LATERAL 2 VIEWS Schedule BETTY, Read BETTY (Appt Today, Awaiting Results) 05/23/2024 6:10 PM CDT Lower respiratory infection POCT RAPID RSV (CPT 17243) Routine 05/23/2024 4:48 PM CDT Lower respiratory infection POC INFLUENZA A/B, COVID-19 ANTIGEN Routine 05/23/2024 4:48 PM CDT Lower respiratory infection EGFR STAT 10/22/2023 9:33 AM CDT HEMOGLOBIN A1C Routine 09/07/2022 3:21 PM CDT HEPATITIS PANEL, ACUTE Routine 08/03/2022 6:56 AM CDT LIPID PANEL Routine 03/14/2022 1:16 PM PRIMING POWDER PREMIX BLENDER Postsurgical malabsorption Bariatric surgery status COLONOSCOPY 04/10/2021 12:46 PM PRIMING POWDER PREMIX BLENDER HM DIABETES FOOT EXAM Routine 06/09/2016 DIABETES EYE EXAM Routine 03/29/2013 DEXA SCAN Routine 12/04/2009 from Last 3 Months or Most Recently Relevant to Health Maintenance Results * Screening Mammogram Bilateral W [place] (08/17/2024 9:26 AM CDT) Anatomical Region Laterality Modality Breast Bilateral Mammography Impressions 08/17/2024 10:30 AM CDT Bilateral No evidence of malignancy in either breast. OVERALL BI-RADS FINAL ASSESSMENT: 2 - Benign RECOMMENDATION: Recommend bilateral annual screening mammography. Narrative 08/17/2024 10:30 AM CDT EXAMINATION: Screening Mammogram Bilateral W [place]: 08/17/2024 COMPARISON: Relevant prior studies available at the time of interpretation were reviewed. TECHNIQUE: Mammography was performed with 2D and digital breast tomosynthesis (DBT) images. CAD was utilized. BREAST PARENCHYMAL COMPOSITION: The breasts are heterogeneously dense, which may obscure small masses. FINDINGS: Bilateral There is no suspicious mass, calcification, or architectural distortion in either breast. us Self Screening Mammogram IMG MAMMO PROCEDURES Fi nal Result * XR Chest Pa Lateral 2 Views (05/23/2024 6:10 PM CDT) Anatomical Region Laterality Modality Body, Chest N/A Computed Radiogr aphy 05/24/2024 3:24 AM CDT Narrative 05/24/2024 3:26 AM CDT EXAM DESCRIPTION: XR CHEST PA LATERAL 2 VIEWS REASON FOR STUDY: shortness of breath SOB and cough x 1 wk TECHNIQUE: Frontal and lateral views of the chest. COMPARISON: 08/02/2022 FINDINGS: LUNGS AND PLEURA: No focal airspace opacity, pleural effusion, or pneumothorax identified. HEART/MEDIASTINUM: Trachea midline. Cardiac silhouette normal in size. Mediastinal contours appear normal. BONES: Unremarkable. CHEST WALL: Unremarkable. UPPER ABDOMEN: Unremarkable. IMPRESSION: Unremarkable chest radiographs. THIS IS AN ELECTRONICALLY VERIFIED FINAL REPORT 05/24/2024 3:26 AM - Electronically signed by Alex Miranda M.D. AR: ARMAND Report ID: [id number] Reading Location: [id number] Procedure Note Alex Miranda MD - 05/24/2024 EXAM DESCRIPTION: XR CHEST PA LATERAL 2 VIEWS REASON FOR STUDY: shortness of breath SOB and cough x 1 wk TECHNIQUE: Frontal and lateral views of the chest. COMPARISON: 08/02/2022 FINDINGS: LUNGS AND PLEURA: No focal airspace opacity, pleural effusion, or pneumothorax identified. HEART/MEDIASTINUM: Trachea midline. Cardiac silhouette normal in size. Mediastinal contours appear normal. BONES: Unremarkable. CHEST WALL: Unremarkable. UPPER ABDOMEN: Unremarkable. IMPRESSION: Unremarkable chest radiographs. THIS IS AN ELECTRONICALLY VERIFIED FINAL REPORT 05/24/2024 3:26 AM - Electronically signed by Alex Miranda M.D. AR: ARMAND Report ID: [id number] Reading Location: [id number] Jael Rain SCALE TANK OPERATOR IMG XR PROCEDURES Final Result * POC Influenza A/B, COVID-19 antigen (05/23/2024 4:48 PM CDT) [facility] Influenza A Ag, POC Negative Negative [facility] Influenza B Ag, POC Negative Negative [facility] COVID-19 Ag POC Presumptive Negative Presumptive Negative, Invalid [facility] Nasal 05/23/2024 4:48 PM CDT Jael Rain SCALE TANK OPERATOR POINT OF CARE TEST ORDERABLES Final Result [facility] [address] [place] [address], [facility] * POCT rapid RSV (05/23/2024 4:48 PM CDT) [facility] Rapid RSV, POC Negative Negative Lot Number [id number] QC Control Line Acceptable Swab 05/23/2024 4:48 PM CDT Jael Rain NP POINT OF CARE TEST ORDERABLES Final Result * eGFR (10/22/2023 9:33 AM CDT) eGFR 89 >=60 mL/min/1. 73 m2 Comment: Interpretive Data Reference Interval Normal >/= 90 mL/min/1.73m2 Mildly decreased* 60 - 89 mL/min/1.73m2 Mildly to moderately decreased 45 - 59 mL/min/1.73m2 Moderately to severely decreased 30 - 44 mL/min/1.73m2 Severely decreased 15 - 29 mL/min/1.73m2 Kidney Failure < 15 mL/min/1.73m2 *Relative to young adult level Estimated glomerular filtration rate is determined by the 2020 CKD-EPI equation recommended by the National Kidney Foundation (A Unifying Approach to GFR Estimation: Recommendations of the NKF-ASK Task Force on Reassessing the Inclusion of Race in Diagnosing Kidney Disease, JASN 2020). The CKD-EPI equation should not be used for patients with unstable renal function and has not been validated in children and those over 70. Current interpretive data was last reviewed 2021. Blood 10/22/2023 9:33 AM CDT 10/22/2023 9:42 AM CDT Ricardo Segovia MD LAB BLOOD ORDERABLES Final R esult [facility] [place] [address] * Hemoglobin A1c (09/07/2022 3:21 PM CDT) Hgb A1C 4.3 4.0 - 5.6 % [facility] Estimated Average Glucose 77 mg/dL [facility] Comment: The ADA recommends reporting an estimated Average Glucose (eAG) with all Hemoglobin A1c results using the equation derived from a study of 507 normal and diabetic adults. Minority populations were underrepresented and children were not included. (Diabetes Care 31:9416-4868, 2008). The eAG is not equivalent to a fasting glucose. Blood 09/07/2022 3:21 PM CDT 09/07/2022 4:12 PM CDT Vinod Nunez NP LAB BLOOD ORDERABLES Shamika alexis Result [facility] [id number] [place] [address] Department [place] [address] * Hepatitis panel, acute (08/03/2022 6:56 AM CDT) Hep A IgM Nonreactive Nonreactive [facility] ([facility]) Comment: Interpretive Data: If Hep A IgM Ab is reported as Equivocal, a new sample should be drawn in two weeks for testing. Current interpretive data was last revised on 19. Testing performed by: [address] [address] Hep B core IgM Nonreactive Nonreactive C ERNER LUZ [facility] ([facility]) Comment: Interpretive Data If HepB Core IgM Ab is reported as Equivocal, a new sample should be drawn in two weeks for testing. Current interpretive data was last revised on 19. Testing performed by: [address] [address] Hep C Ab Nonreactive Nonreactive [facility] ([facility]) Comment: Interpretive Data Nonreactive: Antibodies to HCV not detected. Does NOT exclude the possibility of recent exposure to HCV. Equivocal: Equivocal for HCV antibodies. Supplemental molecular testing will be automatically performed to determine infection status in accordance with current CDC screening recommendations. Reactive: Positive for HCV antibodies. This may represent current or past HCV infection. Supplemental molecular testing will be automatically performed to determine current infection status in accordance with current CDC screening recommendations. Interpretive data was last revised on 2019. Testing performed by: [address] [address] HepBsAg Nonreactive Nonreactive [facility] ([facility]) Comment:Testing performed by : [address] [address] Blood 08/03/2022 6:56 AM CDT 08/03/2022 6:25 PM CDT us Ciera Kim MD LAB MICROBIOLOGY - GENERAL ORDER DAREK Final Result [facility] Department [place] [address] * (ABNORMAL) Lipid panel (03/14/2022 1:16 PM PRIMING POWDER PREMIX BLENDER) Cholesterol 150 <200 mg/dL [facility] HDL 49(L) > OR = 50 mg/dL [facility] Triglycerides 75 <150 mg/dL [facility] LDL 85 mg/dL (calc) [facility] Comment: Reference range: <100 Desirable range <100 mg/dL for primary prevention; <70 mg/dL for patients with CHD or diabetic patients with > or = 2 CHD risk factors. LDL-C is now calculated using the Roderick-Reddy calculation, which is a validated novel method providing better accuracy than the Friedewald equation in the estimation of LDL-C. Roderick SS et al. SHAI. 2013;310(19): 2063-8830 (http://education.mysportgroup/faq/UQF178) Chol/HDL ratio 3.1 <5.0 (calc) [facility] Non-HDL, (LDL+VLDL) 101 <130 mg/dL (calc) [facility] Comment: For patients with diabetes plus 1 major ASCVD risk factor, treating to a non-HDL-C goal of <100 mg/dL (LDL-C of <70 mg/dL) is considered a therapeutic option. Blood 03/14/2022 1:16 PM PRIMING POWDER PREMIX BLENDER 03/14/2022 1:16 PM PRIMING POWDER PREMIX BLENDER Narrative [facility] - 03/21/2022 10:22 PM PRIMING POWDER PREMIX BLENDER FASTING:NO FASTING: NO us Maureen Vaelncia MD LAB BLOOD ORDERABLES Fin al Result [facility] [address] [address] * COLONOSCOPY (04/10/2021 12:46 PM PRIMING POWDER PREMIX BLENDER) Anatomical Region Laterality Modality Other Narrative Procedure Note Yury Guerrero MD - 04/10/2021 12:46 PM [facility] ENDOSCOPY LAB Patient Name: Jdoy Cummings Procedure Date: 04/10/2021 12:46 PM Date of : 1955 Admit Type: Outpatient Age: 65 Gender: Female Attending MD: Yury Guerrero M.D. Note Status: Finalized Procedure: Colonoscopy Indications: Screening for colorectal malignant neoplasm, Last colonoscopy 10 years ago Providers: Yury Guerrero M.D. Referring MD: Maureen Valencia M.D. Medicines: Monitored Anesthesia Care Complications: No immediate complications. Estimated Blood Loss: Estimated blood loss: none. Procedure: Pre-Anesthesia Assessment: - Immediately prior to administration ofmedications, the patient was re-assessed for adequacy to receive sedatives. - Sedation was administered by an anesthesia professional. The sedation level attained wasmoderate. - The heart rate, respiratory rate, oxygen saturations, blood pressure, adequacy of pulmonary ventilation, and response to care were monitored throughout the procedure. - The physical status of the patient wasre-assessed after the procedure. The benefits, risks and alternatives of theprocedure and sedation were discussed and informed consentwas obtained. All questions were answered. Please referto the signed informed consent document in the medical record. The scope was passed under direct vision.The [id number] was introduced through the anusand advanced to the cecum, identified by theappendiceal orifice, ileocecal valve and palpation. The colonoscopy was somewhat difficult due toinadequate bowel prep and significant looping. Completion ofthe procedure was aided by straightening and shortening the scope to obtain bowel loop reduction, applying abdominal pressure and lavage. The patienttolerated the procedure well. The quality of the bowel preparation on the right was inadequate despite aggressive irrigation. The quality of the bowel preparation was evaluated using the BBPS (BostonBowel Preparation Scale) with scores of: Right Colon = 1 (portion of mucosa seen, but other areas not wellseen due to staining, residual stool and/or opaqueliquid), Transverse Colon = 1 (portion of mucosa seen, but other areas not well seen due to staining, residual stool and/or opaque liquid) and Left Colon = 3(entire mucosa seen well with no residual staining, small fragments of stool or opaque liquid). The totalBBPS score equals 5. Bowel prep was administered using a split dose. Findings: Skin tags were found on perianal exam. A few small-mouthed diverticula were found in the sigmoid colon. The exam was otherwise without abnormality on direct and retroflexion views other than small internal hemorrhoids on regular endoscopy and skin tags on retroflexion. Impression: - Preparation of the colon was inadequate. - Perianal skin tags found on perianal exam and retroflexion, small internal hemorrhoids. - Diverticulosis in the sigmoid colon. - The examination was otherwise normal on directand retroflexion views although right colon andtransverse not well-viewed due to inadequate prep. - No specimens collected. Recommendation: - Discharge patient to home. - Advance diet as tolerated and high fiber diet indefinitely. - Continue present medications. - Use fiber, for example Citrucel, Fibercon, Konsylor Metamucil. - Repeat colonoscopy at the next availableappointment because the bowel preparation was poor. - For polyp and cancer prevention: Consider daily aspirin if OK with primary care provider; Calcium, folate, and vitamin D; healthy diet low inprocessed and red meats, exercise regularly, maintain healthy weight. See [facility] Cancer website for moreprevention tips. - Contact Information: During normal business hours (8AM-4PM) - Pleasecall the Nurse Coordinator: [phone]. information technology program manager physician after hours, weekends andholidays: [phone] and asked for the [place]-Rectalphysician professional employer consultant. - Two day prep next time, clears/liquids the days before. Electronically signed by Yury Guerrero MD Yury Guerrero M.D. 04/10/2021 1:44:09 PM Number of Addenda: 0 Note Initiated On: 04/10/2021 12:46 PM CC Letter to: Shamir Sadler M.D. Yury Guerrero MD ENDOSCOPY PROCEDURES Final R esult * DIABETES FOOT EXAM (06/09/2016) Pathologist [facility] Diabetic Foot Exam Unknown Result [facility] Historical Provider HEALTH MAINTENANCE Final Result * DIABETES EYE EXAM (03/29/2013) Diabetic Eye Exam Unknown [facility] Provider HEALTH MAINTENANCE Final Result * DEXA SCAN (12/04/2009) Pathologist [facility] DEXA Scan Normal Anatomical Region Laterality Modality Other Historical Provider HEALTH MAINTENANCE Final Result from Last 3 Months or Most Recently Relevant to Health Maintenance Additional Health Concerns Infection Onset Date Last Indicated MDR gram neg/ESBL 02/17/2019 06/28/2019 Insurance [employer] SENIOR SUPPLEMENT T SENIOR SUPPLEMENT BLUE ACCESS OOS [facility] MEDICARE ADVANTAGE MEDICARE T SENIOR SUPPLEMENT MEDICARE AET SENIOR SUPPLEMENT Advance Directives For more information, please contact: [phone] * Full Code (Latest Code Status on File) Date Activated Date Inactivated Comments 09/30/2023 6:20 AM 10/02/2023 5:59 PM * Full Code Date Activated Date Inactivated Comments 09/30/2023 5:13 AM 09/30/2023 6:20 AM * Full Code Date Activated Date Inactivated Comments 09/07/2022 6:33 AM 09/08/2022 8:16 PM * Full Code Date Activated Date Inactivated Comments 08/02/2022 11:47 PM 08/06/2022 5:26 PM * Full Code Date Activated Date Inactivated Comments 08/02/2022 11:25 PM 08/02/2022 11:47 PM Care Teams Alternative Financing Specialist Relationship Specialty Start Date End Date Shamir Sadler MD [address] [place] [address] PCP - General 06/13/16 Shamir Sadler MD [address] [facility] 1 [place] [address] Referring Physician Internal Medicine 03/25/22 Ron Field MD [address] [place] [address] Surgeon Orthopedic Surgery 08/06/22 [place] [address] [address] [facility] [address] [place] [address] Consulting Physician Pain Management 09/08/22 [place] [id number] [address] Nurse Practitioner Nurse Practitioner 11/23/23
--- OUTSIDE RECORDS SUMMARY | 2024-08-20 19:16 | XMS_ITS | Encounter Summary ---
Author Organization [facility] Health Address [address] [place] [address] [place] [address] Care Team Providers Care Ply Bander Name Role Phone Shamir Sadler MD Primary Care Provider [phone] Encounter Details Date Type Department Care Team (Late st Contact Info) Description 10/26/2018 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
--- OUTSIDE RECORDS SUMMARY | 2024-08-20 19:16 | XMS_ITS | Encounter Summary ---
Author Organization [facility] Address [address] [place] [address] Phone Care Team Providers Care Meeting Specialist Name Role Phone Shamir Sadler MD Primary Care Provider + Shamir Sadler MD Unavailable Ron Field MD Unavailable Shamir Khalil MD Unavailable [phone] Jaya Gaming NP Unavailable [phone] Reason for Visit * Reason Onset Date Comments colonoscopy checklist 03/06/2021 Encounter Details Date Type Department Care Team (Late st Contact Info) Description 03/06/[address] [facility] Surgery [address] [facility] 8th [place] [address] [place] [id number] Joanna Menjivar colonoscopy checklist Social History Tobacco Use Types Packs/Day Years Used Date Smoking Tobacco: Never Smokeless Tobacco: Never Alcohol Use Standard Drinks/Week Comments No 0 (1 standard drink = 0.6 oz pur e alcohol) PHQ-2 Answer Date Recorded PHQ-2 Total Score (If total score is 3 or more points, staff should administer the PHQ-9) 2 06/27/2019 Comments No Sex and Gender Information Value Date Recorded Sex Assigned at Not on file Legal Sex Female 8:03 PM COMMUTER PILOT Gender Identity Female 05/15/2020 2:34 PM COMMUTER PILOT Sexual Orientation Straight 05/15/2020 2: 34 PM COMMUTER PILOT documented as of this encounter Plan of Treatment Not on file documented as of this encounter Visit Diagnoses Not on filedocumented in this encounter Additional Health Concerns Infection Onset Date Last Indicated Resolved Time MDR gram neg/ESBL 02/17/2019 06/28/2019 COVID: Suspected 01/21/2022 01/21/2022 01/22/2022 3:05 AM COMMUTER PILOT COVID: Suspected 01/21/2022 01/21/2022 01/22/2022 5:06 AM COMMUTER PILOT COVID: Suspected 05/23/2024 05/23/2024 05/23/2024 4:49 PM CDT documented as of this encounter Care Teams Meeting Specialist Relationship Specialty Start Date End Date Shamir Sadler MD [address] [facility] [place] [address] PCP - General 06/13/16 Shamir Sadler MD [address] [facility] 1 [place] [address] Referring Physician Internal Medicine 03/25/22 Ron Field MD [address] [facility] [address] [place] [address] Surgeon Orthopedic Surgery 08/06/22 [place] [address] [facility] [address] [place] [address] Consulting Physician Pain Management 09/08/22 [place] [address] [address] [facility] [address] [place] [address] Nurse Practitioner Nurse Practitioner 11/23/23 documented as of this encounter
--- OUTSIDE RECORDS SUMMARY | 2024-08-20 19:16 | XMS_ITS | Encounter Summary ---
Author Organization [facility] Health Address [address] [place] [address] [place] [address] Care Team Providers Care Security Assistant Name Role Phone Shamir Sadler MD Primary Care Provider [phone] Encounter Details Date Type Department Care Team (Late st Contact Info) Description 10/10/2020 [facility] Outpatient Visit [facility]NAL [facility]PT Unknown, Provider Social History Tobacco Use Types Packs/Day Years Used Date Smoking Tobacco: Never Smokeless Tobacco: Never Alcohol Use Standard Drinks/Week Comments No 0 (1 standard drink = 0.6 oz pur e alcohol) Comments Unknown Sex and Gender Information Value Date Recorded Sex Assigned at Not on file Legal Sex Female 6:24 AM SUPERVISOR CARDING Gender Identity Not on file Sexual Orientation [...] on filedocumented in this encounter Care Teams Security Assistant Relationship Specialty Start Date End Date Shamir Sadler MD PCP - General Internal Medicine 12/06/19 documented as of this encounter
--- OUTSIDE RECORDS SUMMARY | 2024-08-20 19:16 | XMS_ITS | Encounter Summary ---
Author Organization [facility] Address [address] [place] [address] [place] [address] Care Team Providers Care Utility Maintenance Worker Name Role Phone Shamir Sadler MD Primary Care Provider [phone] Encounter Details Date Type Department Care Team (Late st Contact Info) Description 10/11/2019 Lab Requisition [facility] Pathology Lab [address] [place] [address] Natividad Lara MD [address] [facility] [place] [address] Social History Tobacco Use Types Packs/Day Years Used Date Smoking Tobacco: Never Smokeless Tobacco: Never Alcohol Use Standard Drinks/Week Comments No 0 (1 standard drink = 0.6 oz pur e alcohol) Comments Unknown Sex and Gender Information Value Date Recorded Sex Assigned at Not on file Legal Sex Female 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 Nerve, right sural, biopsy; - Marked loss of myelinated axons, large and small - No evidence of vasculitis or amyloid 11/16/2019 6:19 AM CDT [facility] at 0619 CDT Microscopic Description and Comment Microscopic examination of routinely stained sections of paraffin-embedded right nerve biopsy material and of toluidine blue stained sections of plastic-embedded left nerve biopsy material shows cross sections of peripheral nerve consisting of few fascicles with severe loss of small and large myelinated axons. There is no evidence of vasculitis or perineurial/intraneur al inflammation. Thioflavin S stain is negative for amyloid. These features are those of a severe neuropathy and are not specific to any single entity. Clinical correlation is recommended. The immunofluorescent stains for IgG, IgA, IgM, C3, C1q and fibrinogen are negative. Electron microscopy ([id number]) was performed and shows loss of large and small myelinated axons, collagen pockets and artifactual changes in myelin without evidence of amyloid deposition. 11/16/2019 6:19 AM [facility] PATHOLOGY LAB Clinical History 64-year-old woman with acute onset severe right lower extremity pain with ankle weakness about 14 months ago. She underwent L4-5 laminectomy that was complicated by MRSA infection. Over time she developed severe weakness and sensory changes on the left side. 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 11/16/2019 6:19 AM [facility] PATHOLOGY LAB Gross Description The specimen is received fresh labeled with the patient's name Jody Bhakta and right sural nerve. It consists of a cylindrical piece of soft white nerve which measures 4.7 cm in length and 0.2 cm in diameter. Portions of the tissue are sampled for light microscopy and frozen. Electron microscopy was not requested. 11/16/2019 6:19 AM [facility] PATHOLOGY LAB Disclaimer The performance characteristics of all immunohistochemical and indirect immunofluorescence stains (if any) cited in this report were determined by the Histopathology Laboratory of [facility]. Some of these tests were developed by our own laboratory and have not been cleared or approved by the US Food and Drug Administration. The FDA does not require this test to go through premarket FDA review. These tests are used for clinical purposes. They should not be regarded as investigational or for research. This laboratory is certified under the Clinical Laboratory Improvement Amendments (CLIA) as qualified to perform high complexity clinical laboratory testing. This case has been personally reviewed and interpreted by the attending (teaching) pathologist. 11/16/2019 6:19 AM [facility] PATHOLOGY LAB Embedded Images 11/16/2019 6:19 AM [facility] PATHOLOGY LAB Pathology/Cytolo gy BIOPSY OF NERVE / Unknown 10/11/2019 9:47 AM CDT 10/11/2019 11:35 AM CDT us Natividad Lara MD LAB - PATHOLOGY/CYTOLOGY ORDERAB LES Final Result [facility] PATHOLOGY LAB [address] [place] [address], [facility] [phone] documented in this encounter Visit Diagnoses Not on filedocumented in this encounter Care Teams Utility Maintenance Worker Relationship Specialty Start Date End Date Shamir Sadler MD PCP - General Internal Medicine 12/06/19 documented as of this encounter
--- OUTSIDE RECORDS SUMMARY | 2024-08-20 19:16 | XMS_ITS | Clinical Summary ---
Author Organization [facility] Address [address] [place] [address] Phone Care Team Providers Care Surgical Coder Name Role Phone Shamir Sadler MD Primary Care Provider [phone] Medications HYDROmorphone HCl (DILAUDID PO) Take by mouth. Activ e DULOXETINE HCL PO Take by mouth. Activ e Gabapentin Enacarbil (HORIZANT PO) Take by mouth. A ctive METHENAMINE HIPPURATE PO Take by mouth. Ac tive OMEPRAZOLE PO Take by mouth. A ctive Estrogens, Conjugated (PREMARIN VA) by Vaginal route. Active Denosumab (PROLIA SC) by Subcutaneous route. Active Active Problems Problem Noted Date Diagnosed Date Major depressive disorder, recurrent episode, mo derate 10/07/2022 Encounters Date Type Department Care Team Description 07/22/2024 Refill [facility] [address] [place] [address] Prasanth Mart, PHARMACEUTICAL ENGINEER, PAN WASHER Medication Refill from Last 3 Months Social History Tobacco Use Types Packs/Day Years Used Date Smoking Tobacco: Never Smokeless Tobacco: Never Tobacco Cessation:Counseling Given: Not Answered Alcohol Use Standard Drinks/Week Comments Never 0 [...] PM CDT Sexual Orientation Not on file Plan of Treatment Health Maintenance Due Date Last Done Comments DEXA Bone Density 1956 Colonoscopy 2001 Colorectal Cancer Screening 2001 Cologuard 2006 Immunochemical Fecal Occult Blood 2006 Pneumococcal Immunization (5 0+ years) (1 of 1 - PCV) 2006 Zoster Immunization (2 of 3) 04/19/2015 02/22/2015 Mammogram 05/31/2021 05/31/2020 SARS-COV-2 Immunization ( season) 2023 04/15/2021, 05/02/2020, 04/14/2020 Influenza Immunization (Seas on Ended) 2024 Respiratory Syncytial Virus (RSV) Immunization (Adult) (1 - 1-dose 75+ series) 2031 DTaP/Tdap/Td Immunization Discontinued 03/14/2008 TdaP Immunization Completed 03/14/2008 Hepatitis C Virus (HCV) Screening Completed 08/03/2022 Hepatitis B Immunization Aged Out No longer eligible based on patient's age to complete this topic Human Papillomavirus (HPV) Immunization Aged Out No longer eligible based on patient's age to complete this topic Meningococcal Immunization (ACWY) Aged Out No longer eligible based on patient's age to complete this topic Rotavirus Immunization Aged Out No lo nger eligible based on patient's age to complete this topic Goals Goal Patient Goal Type Associated Problems Recent Progress Patient-Stated? Author Behavioral Health Behavioral Health On track(2022 9:40 AM SENIOR QUALITY ASSURANCE ENGINEER) Yes Wilfrid Patel, HIM CLERK Note: I need help coping with family drama and my chronic pain, setting and maintaining healthy boundaries. Goal/Objective: Increase coping skills. Anticipated Time Frame for Goal Completion: 6 months Goal Reviewed with: patient Readiness to change: Ready to change Department associated with goal: [facility] Steps to achieve goal: will identify at least two ways their behavioral health impacts their physical health and vice versa. will identify at least two ways/skills/habits to reduce exacerbation of co- occurring disorders. will implement at least one new way/skill/habit to reduce exacerbation of co-occurring disorders Will attend individual and/or group session at least 1x/month at least 6 sessions Insurance MEDICARE [facility] Care Teams Surgical Coder Relationship Specialty Start Date End Date Shamir Sadler MD [address] [place] [address] PCP - General Internal Medicine 08/19/22
--- OUTSIDE RECORDS SUMMARY | 2024-08-20 19:16 | XMS_ITS | Encounter Summary ---
Author Organization [facility] Address [address] [place] [address] [place] [address] Care Team Providers Care Aircraft Delivery Checker Name Role Phone Shamir Sadler MD Primary Care Provider [phone] Encounter Details Date Type Department Care Team (Late st Contact Info) Description 10/11/2019 Lab Requisition [facility] Pathology Lab [address] [place] [address] Natividad Lara MD [address] [facility] [place] [address] Social History Tobacco Use Types Packs/Day Years Used Date Smoking Tobacco: Never Smokeless Tobacco: Never Alcohol Use Standard Drinks/Week Comments No 0 (1 standard drink = 0.6 oz pur e alcohol) Comments Unknown Sex and Gender Information Value Date Recorded Sex Assigned at Not on file Legal Sex Female 6:24 AM 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 Skeletal muscle, vastus lateralis, biopsy: - Neurogenic atrophy, moderate to severe - See description 11/16/2019 12:39 PM CDT [facility] at 1239 CDT Microscopic Description and Comment 1 H&E, 1 trichrome, 1 PAS, 1 diastase, 1 oil red O, 1 myosin ATPase pH 4.3, 1 myosin ATPase pH 4.6, 1 myosin ATPase pH 9.4, 1 NADH, 1 MHC 1 All of the stains are performed on frozen sections of the muscle biopsy. H&E stained frozen sections of the muscle biopsy show fragments of relatively well-oriented biopsy of skeletal muscle with mild freeze artifact. There is focal increase in endomysial connective tissue and an increase in adipose tissue in the perimysium, reflecting atrophy, but no inflammatory infiltrate. There is marked variation in muscle fiber size with fascicles of atrophic fibers adjacent to fascicles with more normally sized fibers. In the areas of atrophy, there is increased nuclear prominence, and nuclear aggregates. In areas of more normally sized fibers there are scattered atrophic fibers, including ones with angular profiles but with minimal increase in connective tissue and minimal, focal hypertrophic change. Trichrome stain, performed on frozen section of the muscle biopsy shows that there are a few fibers with prominent mitochondria and one rare fibers with cytoplasmic bodies. The PAS stain, with and without diastase digestion, performed on frozen section of the muscle biopsy shows no abnormality in glycogen content. The oil red O stain performed on frozen section of the muscle biopsy shows no increase in muscle fiber lipid. Histochemistry to demonstrate myosin ATPase, performed on frozen section of the muscle biopsy at 3 pHs shows type I and type II fiber grouping. The NADH reaction, performed on frozen section of the muscle biopsy shows several target fibers. The MHC1 histochemical stain performed on frozen section of the muscle biopsy shows a 4+ endomysial capillary label and only very rare muscle fibers show a trace muscle cell membrane label. 11/16/2019 12:39 PM [facility] PATHOLOGY LAB Clinical History 11/16/2019 12:39 PM [facility] PATHOLOGY LAB Gross Description Submitted fresh, on ice, wrapped in gauze, without orientation are two portion of twisted red-brown muscle measuring 3 x 1.6 x 0.5 and 1.2 x 1.0 x 0.3 cm. The specimens are submitted in toto. The specimens are frozen in isopentane cooled with liquid nitrogen. All special stains are performed on frozen sections of the muscle biopsy. 11/16/2019 12:39 PM [facility] PATHOLOGY LAB Disclaimer The performance characteristics of all immunohistochemical and indirect immunofluorescence stains (if any) cited in this report were determined by the Histopathology Laboratory of [facility]. Some of these tests were developed by [...] interpreted by the attending (teaching) pathologist. 11/16/2019 12:39 PM CDT [facility] PATHOLOGY LAB Embedded Images 11/16/2019 12:39 PM CDT [facility] PATHOLOGY LAB Pathology/Cytolo gy MUSCLE BIOPSY SPECIMEN / Unknown 10/11/2019 10:31 AM CDT 10/11/2019 11:43 AM CDT Natividad Lara MD LAB - PATHOLOGY/CYTOLOGY ORDERAB LES Final Result [facility] PATHOLOGY LAB [address] [phone] documented in this encounter Visit Diagnoses Not on filedocumented in this encounter Care Teams Aircraft Delivery Checker Relationship Specialty Start Date End Date Shamir Sadler MD PCP - General Internal Medicine 12/06/19 documented as of this encounter
--- OUTSIDE RECORDS SUMMARY | 2024-08-20 19:16 | XMS_ITS | Encounter Summary ---
Author Organization [facility] Health Address [address] [place] [address] 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
--- OUTSIDE RECORDS SUMMARY | 2024-08-20 19:16 | XMS_ITS | Clinical Summary ---
Author Organization [facility] Address [address] [place] [address] Care Team Providers Care Air Conditioning Coil Assembler Name Role Phone Shamir Sadler MD Primary Care Provider + Shamir Sadler MD Unavailable Ron Field MD Unavailable Shamir Khalil MD Unavailable Jaya Gaming NP Unavailable Allergies Active Allergy Reactions Criticality Noted Date [...] 4 Active methenamine (HIPREX) 1 gram tablet 5 Active Active Problems Problem Noted Date Diagnosed [...] (04/25/2022): Added automatically from request for surgery [id number] Chest pain, unspecified type 03/24/2022 09/07/2022 History of MRSA infection 06/11/2021 Marginal ulcer 03/04/2021 08/30/2021 Overview (03/04/2021): Added automatically from request for surgery [id number] Drug-induced diabetes mellitus 01/09/2021 09/07/2022 Disorder of peripheral nervous system 06/01/2020 09/07/2022 Overview (02/26/2021): Added automatically from request for surgery [id number] Mild protein-calorie malnutrition (CMS/HCC) 05/22/2020 08/30/2021 Adhesive arachnoiditis 07/06/201909/07 Bilateral leg pain 07/06/2019 Bilateral foot-drop 07/06/2019 09/08/19 23 Acute exacerbation of chronic low back pain 03/13/2019 09/07/2022 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 03/13/2019 09/07/2022 Surgical site infection 09/20/201808/15 Infection of lumbar spine 09/03/2018 Adrenal cortex insufficiency 07/28/2018 09/07/2022 Morbid obesity due to excess calories 12/14/2017 05/22/2020 Overview (12/14/2017): Added automatically from request for surgery [id number] Cholecystitis 12/14/2017 02/24/2018 Overview (12/14/2017): Added automatically from request for surgery [id number] Morbid obesity 11/14/2017 02/22/2018 Calculus of gallbladder [...] 08/11/2012 09/08/19 23 Median nail dystrophy 09/01/20112022 Encounters Date Type Department Care Team Description 08/17/2024 9:00 AM CDT - 08/17/2024 11:59 PM CDT Hospital Encounter [facility] [address] [place] [address] Screening mammogram, encounter for Discharge Disposition: Discharge to home or self care 05/26/2024 11:00 AM CDT - 05/26/2024 11:59 PM CDT Hospital Encounter [facility] [address] [place] [address] Jaya Gaming NP Presence of intrathecal pump (Primary Dx); Chronic bilateral low back pain with right-sided sciatica; Lumbar post-laminectomy syndrome; Cervical spinal stenosis; Other chronic pain Discharge Disposition: Discharge to home or self care 05/24/2024 Results Follow-Up [facility] [place] [address] [place] [address] Alicia Key NP XR Chest Pa Lateral 2 Views 05/23/2024 5:45 PM CDT - 05/23/2024 11:59 PM CDT Hospital Encounter [facility] [address] [place] [address] Lower respiratory infection Discharge Disposition: Discharge to home or self care 05/23/2024 4:15 PM CDT Office Visit [facility] [address] [place] [address] Jael Rain NP Lower respiratory infection (Primary Dx) from Last 3 Months Immunizations Immunization Administration Dates Next Due Tdap 03/14/2008 ZOSTER LIVE 02/22/2015 Surgical History Surgery Date Site/Laterality Comments APPENDECTOMY 03/16/1972 - 03/15/1973 BACK SURGERY WISDOM TOOTH EXTRACTION 03/16/2011 - 03/15/2012 SKIN LESION EXCISION tongue LAPAROSCOPIC GASTRIC BYPASS 03/16/2017 - 03/15/2018 w/cholecystectomy LAMINECTOMY 03/16/2018 - 03/15/2019 CHOLECYSTECTOMY SPINE SURGERY 9 PARTIAL HIP ARTHROPLASTY Left INTRATHECAL PUMP IMPLANTATION placed, and then replaced in 2022 Medical History Medical History Date Comments Insomnia Gastroesophageal reflux disease resolved Herpes zoster Gallstones Allergic rhinitis RLS (restless legs syndrome) Sciatica Arthritis 2009 Bladder incontinence UTI (urinary tract infection) Chronic pain disorder Neuropathy MRSA (methicillin resistant Staphylococcus aureu s) infection Presence of intrathecal pump Family History Medical History Relation Name Comments Other Brother 3 Alive and well; Other Brother 4 Cancer -testicu lar; pt age was 18 months Lupus Cousin 1 Lupus erythemat osus; Breast cancer Cousin 2 Cancer, breast ; defects Daughter Ksenia Viveros Abdominal Aortic Aneurysm Father Marquis Newton A AA; COPD Father Marquis Newton Emphysema Father Marquis Newton Other Father Marquis Newton cluster headac hes; Other Grandchild cyclic neutrope farshad; COPD Mother Charla Newton Other Other 1 No family histo ry of Migraines; Other Other 2 No family histo ry of Coronary artery disease; Other Other 3 No family histo ry of Stroke; Other Other 4 No family histo ry of Osteoporosis; Arthritis Paternal Grandmother Zelda Newton Diabetes Sister Gauri Albrightjonelle Diabetes type II Sister Gauri Taoanthony Diabete s -Type 2; Other Son Neutropenia; Anesthesia problems Neg Hx Relation Name Status Comments Brother 1 Alive Brother 2 Alive Brother 3 Brother 4 Cousin 1 Cousin 2 Daughter Ksenia Viveros Father Marquis Newton Grandchild Mother Charla Newton Other 1 Other 2 Other 3 Other 4 Paternal Grandmother Zelda Newton Sister Gauri Vallecillo Son Social History Tobacco Use Types Packs/Day Years Used Date Smoking Tobacco: Never Passive Smoke Exposure: Past Smokeless Tobacco: Never Tobacco Cessation:Counseling Given: Not Answered Alcohol Use Standard Drinks/Week Comments No 0 (1 standard drink = 0.6 oz pur e alcohol) [facility] Utilities Answer Date Recorded In the past 12 months has [employer] electric, gas, oil, or water company threatened to shut off services in your [...] 09/30/2023 How often do you attend chur ch or jain services? More than 4 times per year 09/30/2023 Do you belong to any clubs o r organizations such as mormonism groups, unions, fraternal or athletic groups, or [...] you are drinking? Patient does not drink Q3: How often do you have si [...] any time in the past 12 m [facility], were you homeless or living in a [...] on file Legal Sex Female 8:03 PM FRINGE KNOTTER Gender Identity Female 05/15/2020 2:34 PM FRINGE KNOTTER Sexual Orientation Straight 05/15/2020 2: 34 PM FRINGE KNOTTER Occupation Industry Job Start Date Job End Date Not on file Not on file Not on file Not on file Obstetrics History Para Term AB IAB SAB Ectopic Multiple Livin g Live Births 3 3 3 3 3 Date Outcome GA Total Labor Labor/2nd/3rd Weight Sex Type Anes PTL Nakia A1 A5 Name Clin 1979 Term 39w 0d 3.714 kg (8 lb 3 oz) F Vaginal Living Complications:None 1983 Term 39w 0d 4.366 kg (9 lb 10 oz) F Vaginal Living Complications:None 1987 Term 40w 0d 3.629 kg (8 lb) M Vaginal Living Complications:None Last Filed Vital Signs Vital Sign Reading [...] 08/17/2024 9:16 AM CDT Plan of Treatment Health Maintenance Due Date Last Done Comments Albumin Creatinine Ratio, Urine 1956 Hepatitis B Screening 1974 Pneumococcal vaccine 65+ (1 of 2 - PCV) 1975 Osteoporosis Screening-Bone Density Scan 12/05/2011 12/04/2009 Dilated Eye Exam 03/29/2014 03/29/2013 Zoster Vaccine (2 of 3) 04/19/2015 02/22/2015 Foot Exam 01/01/2018 01/01/2017, 06/09/2016 DTaP/Tdap/Td Vaccine (2 - Td or Tdap) 03/14/2018 03/14/2008 Depression Screening 06/26/2020 06/27/2019, 02/27/2019, 01/01/2017, Additional history exists Hemoglobin A1C 03/09/2023 09/07/2022, 12/3 , 02/23/2018, Additional history exists Well Visit 65+ 08/29/2023 08/28/2022 Covid-19 Vaccine (4 2023-2 5 season) 2023 04/15/2021, 05/02/2020, 04/14/2020 eGFR 10/21/2024 10/22/2023, 09/13, 10/01/2023, Additional history exists Influenza Vaccine (Season Ended) 2024 Fall Risk Assessment 05/26/2025 05/26/2024, 01/02/2021, 12/26/2020, Additional history exists Lipid Panel 08/03/2025 08/03/2024, 02/15, 03/14/2022, Additional history exists Breast Cancer Screening-Mammogram 08/17/2025 08/17/2024, 05/04/2023, 05/04/2023, Additional history exists Colon Cancer Screening-Colonoscopy 04/10/2031 04/10/2021, 11/06/2010 Colon Cancer Screening-CT Colonography Discontinued 04/10/2021, 11/06/2010 Colon Cancer Screening-DNA Stool Discontinued 04/10/19, 11/06/2010 Colon Cancer Screening-FIT Discontinued 04/10/2021, Colon Cancer Screening-Sigmoidoscopy Discontinued 04/10/2021, 11/06/2010 Hepatitis C Screening Completed 08/03/2022 Medical Devices Implanted Type Area Transitions Manager Rn Device Identifier Shelf Expiration Date Model / Serial / Lot Medtronic Synchromed Pain Pump Intrathecal Pain Pump Right: Stomach [employer] [id number] Seamguard Bioabsorbable Reinforcement Staple Line Sterile Latex Free - [id number] Implanted:Qty: 1 on 02/22/2018 by Maureen Valencia MD at [facility] [employer] 07/13/2020 [id number] / / [id number] [employer] [id number] Seamguard Bioabsorbable Reinforcement Staple Line Sterile Latex Free - [id number] Implanted:Qty: 1 on 02/22/2018 by Maureen Valencia MD at [facility] [employer] 08/14/2019 [id number] / / [id number] [employer] [id number] Seamguard Bioabsorbable Reinforcement Staple Line Sterile Latex Free - [id number] Implanted:Qty: 1 on 02/22/2018 by Maureen Valencia MD at [facility] [employer] 08/14/2019 [id number] / / [id number] Medtronic Inc Synchromed Ii .78in Cavour Filter Mesh Pouch Programmable 8637-20 - [id number] - [id number] Implanted:Qty: 1 on 01/23/2022 by Shamir Khaill MD at [facility] Left: Abdomen [employer] Inc 06/28/2023 8637-20 / [id number] / Med[employer]onic Inc Tyrx 3.35x3in Large Envelope Absorbable Polyarylate Minocycline [id number] - [id number] Implanted:Qty: 1 on 01/23/2022 by Shamir Khalil MD at [facility] Left: Abdomen [employer] Inc [id number] 11/08/2022 [id number] / / [id number] [employer] Self-Centering 45mm 28mm Hip Femur Head Bipolar Sterile Cristina [id number] - [id number] Implanted:Qty: 1 on 08/04/2022 by Ron Field MD at [facility] Left: Hip [employer] 12/13/2026 [id number] / / [id number] [employer] Articul/Leonel 28mm Hip +1.5mm 02/26 Taper Head Femoral Cocr Sterile Latex Free 1365-11-000 - [id number] Implanted:Qty: 1 on 08/04/2022 by Ron Filed MD at [facility] Left: Hip [employer] 05/14/2027 0 / / [id number] [employer] Actis Collar Hip 7 Standard Offset Stem Femoral [id number] - [id number] Implanted:Qty: 1 on 08/04/2022 by Ron Field MD at [facility] Left: Hip [employer] 03/15/2032 [id number] / / [id number] Medtronic Inc Ascenda 4fr .5mm 139.7cm 66cm 2 Piece Inner Lumen Radiopaque 8781 - [id number] Implanted:Qty: 1 on 09/17/2022 by Shamir Khalil MD at [facility] [employer] 06/12/2024 [id number] / / [id number] Explanted Type Area Transitions Manager Rn Device Identifier Shelf Expiration Date Model / Serial / Lot Medtronic Inc Ascenda 4fr .5mm 114cm 86cm 2 Piece Connector Pin Flexible Closed 8780 - [id number] Implanted:Qty: 1 on 01/23/2022 by Shamir Khalil MD at [facility] Explanted:Qty: 1 on 09/17/2022 by Shamir Khalil MD at [facility] N/A: Spine Thoracic [employer] Inc 01/04/2024 [id number] / / [id number] Procedures Procedure Name Priority Date/Time Associated Diagnosis Comments SCREENING MAMMOGRAM BILATERAL W HERNESTO Schedule Routine, Read Routine (OP Routine) 08/17/2024 9:26 AM CDT Screening mammogram, encounter for XR CHEST PA LATERAL 2 VIEWS Schedule BETTY, Read BETTY (Appt Today, Awaiting Results) 05/23/2024 6:10 PM CDT Lower respiratory infection POCT RAPID RSV (CPT 52918) Routine 05/23/2024 4:48 PM CDT Lower respiratory infection POC INFLUENZA A/B, COVID-19 ANTIGEN Routine 05/23/2024 4:48 PM CDT Lower respiratory infection EGFR STAT 10/22/2023 9:33 AM CDT HEMOGLOBIN A1C Routine 09/07/2022 3:21 PM CDT HEPATITIS PANEL, ACUTE Routine 08/03/2022 6:56 AM CDT LIPID PANEL Routine 03/14/2022 1:16 PM FRINGE KNOTTER Postsurgical malabsorption Bariatric surgery status COLONOSCOPY 04/10/2021 12:46 PM FRINGE KNOTTER DIABETES FOOT EXAM Routine 06/09/2016 DIABETES EYE [...] Alex Miranda M.D. AR: ARMAND Report ID: [id number] Reading Location: [id number] Procedure Note Alex Miranda MD - 05/24/2024 [...] Alex Miranda M.D. AR: ARMAND Report ID: [id number] Reading Location: [place] [address] us Jael Rain DATA ENTRY ANALYST IMG XR PROCEDURES Final Result * POC Influenza A/B, COVID-19 antigen (05/23/2024 4:48 PM CDT) Influenza A Ag, POC Negative Negative [facility] Influenza B Ag, POC Negative Negative [facility] COVID-19 Ag POC Presumptive Negative Presumptive Negative, Invalid [facility] Nasal 05/23/2024 4:48 PM CDT us Jael Rain DATA ENTRY ANALYST POINT OF CARE TEST ORDERABLES Final Result [facility] [address] [place] [address], [facility] * POCT rapid RSV (05/23/2024 4:48 PM CDT) Rapid RSV, POC Negative Negative Lot Number [id number] QC Control Line Acceptable Swab 05/23/2024 4:48 PM CDT Jael Rain NP POINT OF CARE TEST ORDERABLES Final Result * eGFR (10/22/2023 9:33 AM CDT) Pathologist [facility] eGFR 89 >=60 mL/min/1. 73 m2 Comment: [...] LAB BLOOD ORDERABLES Final R esult KATHIE [facility] Department [place] [address] * Hemoglobin A1c (09/07/2022 3:21 PM CDT) Pathologist [facility] Hgb A1C 4.3 4.0 - 5.6 % KATHIE TRINH Estimated Average Glucose 77 mg/dL KATHIE TRINH Comment: The ADA recommends reporting an estimated Average Glucose (eAG) with all Hemoglobin A1c results using the equation derived from a study of 507 normal and diabetic adults. Minority populations were underrepresented and children were not included. (Diabetes Care 31:1317-4600, 2008). The eAG is not equivalent to a fasting glucose. Blood 09/07/2022 3:2 1 PM CDT 09/07/2022 4:12 PM CDT us Vinod Nunez NP LAB BLOOD ORDERABLES Shamika reuben Result KATHIE [id number] [place] [address] Department [place] [address] * Hepatitis panel, acute (08/03/2022 6:56 AM CDT) Hep A IgM Nonreactive Nonreactive KATHIE LOERA ([place]) Comment: Interpretive Data: If Hep A IgM Ab is reported as Equivocal, a new sample should be drawn in two weeks for testing. Current interpretive data was last revised on 19. Testing performed by: [address] [address] Hep B core IgM Nonreactive Nonreactive C ERNER LUZ MARIA ([place]) Comment: Interpretive Data If HepB Core IgM Ab is reported as Equivocal, a new sample should be drawn in two weeks for testing. Current interpretive data was last revised on 19. Testing performed by: [address] [address] Hep C Ab Nonreactive Nonreactive KATHIE LOERA [...] last revised on 2019. Testing performed by: [address] [address] HepBsAg Nonreactive Nonreactive KATHIE LOERA ([place]) Comment:Testing performed by : [address] [place]., [address] Blood 08/03/2022 6:5 6 AM CDT 08/03/2022 6:25 PM CDT us Ciera Kim MD LAB MICROBIOLOGY - GENERAL ORDER DAREK Final Result Performing Organization Address City/[facility] Co de Phone Number KATHIE LOERA ([place]) 1 [facility] Department [place] [address] * (ABNORMAL) Lipid panel (03/14/2022 1:16 PM FRINGE KNOTTER) Cholesterol 150 <200 mg/dL [facility] [...] LDL-C. Roderick SS et al. SHAI. 2013;310(19): 9269-4965 (http://education.Doubloon/faq/HVB972) Chol/HDL ratio 3.1 <5.0 (calc) [facility] Non-HDL, (LDL+VLDL) 101 <130 mg/dL (calc) [facility] Comment: For patients with diabetes plus 1 major ASCVD risk factor, treating to a non-HDL-C goal of <100 mg/dL (LDL-C of <70 mg/dL) is considered a therapeutic option. Blood 03/14/2022 1:16 PM FRINGE KNOTTER 03/14/2022 1:16 PM FRINGE KNOTTER Narrative [facility] - 03/21/2022 10:22 PM FRINGE KNOTTER FASTING:NO FASTING: NO us Maureen Valencia MD LAB BLOOD ORDERABLES Fin al Result Performing Organization Address City/[facility]/ZIP Co de Phone Number [place] [address] [address] [address] * COLONOSCOPY (04/10/2021 12:46 PM FRINGE KNOTTER) Anatomical Region Laterality Modality Other Narrative Procedure Note Yury Guerrero MD - 04/10/2021 12:46 PM CST ENDOSCOPY LAB Patient Name: Jody Cummings Procedure Date: 04/10/2021 12:46 PM Date [...] The scope was passed under direct vision.The [id number] was introduced through the anusand advanced to [...] meats, exercise regularly, maintain healthy weight. See [employer] [facility] [employer] [facility] Cancer website for moreprevention tips. - Contact Information: During normal business hours (8AM-4PM) - Pleasecall the Nurse Coordinator: [phone]. callisthenics instructor physician after hours, weekends andholidays: [phone] and asked for the [place]erson-Rectalphysician business information consultant. - Two day prep next time, clears/liquids the days before. Electronically signed by Yury Guerrero MD Yury Guerrero M.D. 04/10/2021 1:44:09 PM Number of Addenda: 0 Note Initiated On: 04/10/2021 12:46 PM CC Letter to: Shamir Sadler M.D. Yury Guerrero MD ENDOSCOPY PROCEDURES Final R esult * DIABETES FOOT EXAM (06/09/2016) [facility] Diabetic Foot Exam Unknown Historical Provider HEALTH MAINTENANCE Final Result * DIABETES EYE EXAM (03/29/2013) [facility] Diabetic Eye Exam Unknown Historical Provider HEALTH MAINTENANCE Final Result * DEXA SCAN (12/04/2009) [facility] DEXA Scan Normal Anatomical Region Laterality Modality Other Historical Kimberley MACK HEALTH MAINTENANCE Final Result from Last 3 Months or Most Recently Relevant to Health Maintenance Additional Health Concerns Infection Onset Date Last Indicated MDR gram neg/ESBL 02/17/2019 06/28/2019 Insurance AETNA SENIOR SUPPLEMENT AET SENIOR SUPPLEMENT BLUE ACCESS OOS Member Subscriber Plan / Payer (Ef fective 2020-Present) Name:Jody Cummings Relation to Subscriber:Self Name:Jody Cummings Payer ID:[id number] (NAIC) Type: Secure Command Address: [address] MEDICARE [facility] Address: [address] [address] [place] [address] MEDICARE [facility] SENIOR SUPPLEMENT MEDICARE T SENIOR SUPPLEMENT Advance Directives For more information, please contact: [phone] * Full Code (Latest Code Status on [...] 11:25 PM 08/02/2022 11:47 PM Care Teams Air Conditioning Coil Assembler Relationship Specialty Start Date End Date Shamir Sadler MD [address] [place] [address] PCP - General 06/13/16 Shamir Sadler MD [address] [facility] [address] [place] [address] Referring Physician Internal Medicine 03/25/22 Ron Field MD [address] [place] [address] [address] [place] [address] Surgeon Orthopedic Surgery 08/06/22 [place] [address] [address] [facility] [address] [place] [address] Consulting Physician Pain Management 09/08/22 [place] [address] [address] Nurse Practitioner Nurse Practitioner 11/23/23
--- OUTSIDE RECORDS SUMMARY | 2024-08-20 19:16 | XMS_ITS | Encounter Summary ---
Author Organization [facility] Address [address] [place] [address] Phone Care Team Providers Care Project Structural Engineer Name Role Phone Shamir Sadler MD Primary Care Provider [phone] Reason for Visit * Reason Comments Medication Refill Encounter Details Date Type Department Care Team (Late st Contact Info) Description 07/22/2024 Refill [facility] [address] [place] [address] Prasanth Mart, SCHOOL SOCIAL WORKER, DIRECTOR OF RADIO SERVICES [address] [place] [address] Medication Refill Social History Tobacco Use Types [...] Health Behavioral Health On track(2022 9:40 AM GEOCHEMIST) Yes Wilfrid Patel, CORPORATE SAFETY COORDINATOR Note: I need help coping with family drama and my chronic pain, setting and maintaining healthy boundaries. Goal/Objective: Increase coping skills. Anticipated Time Frame for Goal Completion: 6 months Goal Reviewed with: patient Readiness to change: Ready to change Department associated with goal: [facility] Steps to achieve goal: [...] documented as of this encounter Care Teams Project Structural Engineer Relationship Specialty Start Date End Date Shamir Sadler MD [facility] [place] [address] PCP - General Internal Medicine 08/19/22 documented as of this encounter
--- OUTSIDE RECORDS SUMMARY | 2024-08-20 19:16 | XMS_ITS | Clinical Summary ---
Author Organization [facility] Address [address] [place] [address] Care Team Providers Care Data Integrity Consultant Name Role Phone Shamir Sadler MD Primary Care Provider [phone] Source Comments [facility],non-owned Affiliates and Associated Physician Practices is amultiple site organization consisting of ambulatory clinics and hospital sitesin [place], [place], [place] and [place]. This disclosure is being madepursuant to the Care Everywhere program and may not contain all information available regarding this patient. Last updated 17.[facility] Allergies Active Allergy Reactions Criticality Noted Date Comments Codeine Itching 09/20/2013 Medications * Be aware that medications may not be up to date on this document. Alwaysverify current medications with the patient. multivitamin (OPURITY) CHEW tablet Take 1 tablet by mouth 2 times daily 8 Active Biotin 1000 MCG Take 5,000 mcg by mouth 2 times daily Active vitamin D (CHOLECACIFEROL ) 5000 units capsule Take 5,000 Units by mouth 2 times daily Active Calcium-Phospho luna-Vitamin D (CITRACAL +D3 PO) Take by mouth 3 times daily Active potassium chloride ER (KLOR-CON M) 20 MEQ tablet Take 20 mEq by mouth once daily Active oxyCODONE-aceta minophen (PERCOCET) 10-325 MG tablet Take 1 tablet by mouth 2 times daily as needed 5/325 MG 9 Active PREVIDENT 5000 DRY MOUTH 1.1 % gel BRUSH WITH PREVIDENT IN THE MORNING AND HS. USE OVER THE COUNTER TOOTHPASTE IN BETWEEN 5 9 Active morphine CR 12hr (MS CONTIN) 15 MG tablet Take 1 tablet by mouth every 8 hours as needed 0 Active Thiamine HCl (B-1 PO) Take by mouth once daily Active Pyridoxine HCl (B-6 PO) Take by mouth once daily Active cyanocobalamin (VITAMIN B-12) injection Inject 1,000 mcg into muscle every 30 days Active amitriptyline (ELAVIL) 25 MG tablet Take 25 mg by mouth at bedtime 1 Active Turmeric 500 MG TABS Take 1 capsule by mouth once daily Active baclofen (LIORESAL) 10 MG tablet Take 10 mg by mouth 2 times daily May cause drowsiness. Active traMADol (ULTRAM) 50 MG tablet Take 50 mg by mouth every 6 hours as needed for Pain Active omeprazole (PRILOSEC) 40 MG capsule TAKE 1 CAPSULE BY MOUTH EVERY DAY 30 capsule 5 1 Active DULoxetine (CYMBALTA) 30 MG capsule Take 30 mg by mouth once daily Active gabapentin (NEURONTIN) 800 MG tablet Take 800 mg by mouth 3 times daily 1 AM, 1 AFTERNOON, 2 QHS Active HYDROcodone-mariaelena taminophen (NORCO) 10-325 MG tablet Take 1 tablet by mouth every 6 hours as needed for Pain Active sulfamethoxazol e-trimethoprim (BACTRIM DS; SEPTRA DS) 800-160 MG tablet TAKE 1 TABLET BY MOUTH EVERY THURSDAY, THURSDAY, THURSDAY 12 tablet 5 1 Active Active Problems Problem Noted Date Diagnosed Date Arachnoiditis 03/19/2020 Resolved Problems Problem Noted Date Diagnosed Date Resolved Date Discitis 09/14/2018 09/20/2018 Leukocytosis 08/23/2018 09/20/2018 Tachycardia 08/23/2018 09/20/2018 Fever 08/23/2018 09/06/2018 Radicular pain of lower extremity 08/23/2018 09/20/2018 Acute exacerbation of chronic low back pain 08/23/2018 09/20/2018 Sepsis 08/23/2018 09/20/2018 Intractable back pain 08/14/20182018 Spinal stenosis of lumbar re gion with neurogenic claudication 08/03/2018 09/20/2018 Family History Medical History Relation Name Comments High Cholesterol Brother Hypertension Brother Other Father Tension Headach e, Stomach Ulcer Arthritis - Osteo Mother COPD - Chronic Obstructive P ulmonary Disease Mother Other Sister Diabetes Relation Name Status Comments Brother Alive Father Mother Sister Alive Social History Tobacco Use Types Packs/Day Years Used Date Smoking Tobacco: Never Smokeless Tobacco: Never Alcohol Use Standard Drinks/Week Comments No 0 (1 standard drink = 0.6 oz pur e alcohol) Comments Unknown Sex and Gender Information Value Date Recorded Sex Assigned at Not on file 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 Gender Identity Not on file Sexual Orientation Not on file Last Filed Vital Signs Vital Sign Reading Time Taken Comments Blood Pressure 116/62 10/25/2020 10:27 AM CDT Pulse 84 10/25/2020 10:27 AM CDT Temperature 36.1 C (97 F) 10/11/2019 1:53 PM CDT Respiratory Rate 14 10/25/2020 10:27 AM CDT Oxygen Saturation 97% 10/25/2020 10:27 AM CDT Inhaled Oxygen Concentration - - Weight 68.9 kg (152 lb) 10/25/2020 10:27 AM CDT Height 170.2 cm (5' 7) 10/25/2020 10:27 AM CDT Body Mass Index 23.81 10/25/2020 10:27 AM CDT Plan of Treatment Health Maintenance Due Date Last Done Comments BONE DENSITY TESTING 1955 COLOGUARD (AGES 45-75) - COL ON CA SCREENING 1956 COLON MONITORING 1956 COLONOSCOPY - COLON CA SCREENING 1956 CT COLONOGRAPHY - COLON CA SCREENING 1955 Colorectal Cancer Screening 1956 FIT - COLON CA SCREENING 1956 FLEX SIG - COLON CA SCREENING 1956 DTAP/TDAP/TD VACCINES (1 - Tdap) 1975 PNEUMOCOCCAL VACCINE 50+ (1 of 1 - PCV) 2006 ZOSTER VACCINE (1 of 2) 2006 MAMMOGRAM 05/31/2022 05/31/2020 COVID-19 VACCINE (1 - 2023-2 5 season) 2023 DEPRESSION SCREENING 03/16/2024 INFLUENZA VACCINE (Season Ended) 2024 LIPID TESTING 06/01/2025 06/01/2020 Respiratory Syncytial Virus (RSV) Vaccine Pt: or over 60 yrs (1 - 1-dose 75+ series) 2031 HEPATITIS C SCREENING Completed 05/31/2020 HEPATITIS B VACCINE Aged Out No longe r eligible based on patient's age to complete this topic HIB VACCINE Aged Out No longer eligi ble based on patient's age to complete this topic HPV VACCINE Aged Out No longer eligi ble based on patient's age to complete this topic MENINGOCOCCAL (Group B) VACC INE SHARED DECISION-MAKING Aged Out No longer eligibl e based on patient's age to complete this topic MENINGOCOCCAL GROUPS A/C/Y/W VACCINE Aged Out No longer eligible b ased on patient's age to complete this topic Medical Devices Implanted Type Area Station Agent Device Identifier Shelf Expiration Date Model / Serial / Lot Slnt Dura Duraseal Pg Trilysine Amine 5 Implanted:Qty: 1 on 08/23/2018 by Tano Drew MD at [facility] Right: Spine Lumbar Integra [employer] Asaf 09/13/2019 [id number] / / [id number] Graft Tissue Drgn + Bvn Clgn Mtrx 1x1in Implanted:Qty: 1 on 08/23/2018 by Tano Drew MD at [facility] Right: Spine Lumbar Integra [employer] 01/13/2021 [id number] / / [id number] Insurance ANTH ANTHEM Advance Directives Documents on File Type Date Recorded Patient Bander And Cellophaner Machine Expl anation Adv Directive/Living Will/POA 08/05/2018 8:57 PM * Full Code (Latest Code Status on File) Date Activated Date Inactivated Comments 09/20/2018 8:30 PM 09/29/2018 4:40 PM * Full Code Date Activated Date Inactivated Comments 09/15/2018 2:36 PM 09/20/2018 8:30 PM * Full Code Date Activated Date Inactivated Comments 09/14/2018 11:49 PM 09/15/2018 2:36 PM * Full Code Date Activated Date Inactivated Comments 09/03/2018 7:45 PM 09/14/2018 7:58 PM * Full Code Date Activated Date Inactivated Comments 08/23/2018 12:21 PM 09/03/2018 3:40 PM Care Teams Data Integrity Consultant Relationship Specialty Start Date End Date Shamir Sadler MD PCP - General Internal Medicine 12/06/19
--- OUTSIDE RECORDS SUMMARY | 2024-08-20 19:16 | XMS_ITS | Encounter Summary ---
Author Organization [facility] Address [address] [place] [address] 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
--- OUTSIDE RECORDS SUMMARY | 2024-08-20 19:16 | XMS_ITS | Encounter Summary ---
Author Organization [facility] Address [address] [place] [address] 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
--- OUTSIDE RECORDS SUMMARY | 2024-08-20 19:16 | XMS_ITS | Encounter Summary ---
Author Organization [facility] Address [address] [place] [address] 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
--- OUTSIDE RECORDS SUMMARY | 2024-08-20 19:19 | XMS_ITS | Continuity of Care Document ---
Author Organization [facility] Address [address] [place] [address] Phone Care Team Providers Care Dolphin Researcher Name Role Phone Shantanu Horne MD Unavailable Unavailable Procedures Procedure Date MRI OF NECK, SPINE W/O CONTRAST 020 MRI, SPINAL CANAL W/O CONTRAST 20 Advance Directives Directive Yes / No Effective Date File Name No Information Encounters Encounter Description Practice Location Reason(s) For Visit Diagnoses Date Provider Providers Copied on Encounter [facility], [address], [place], [place], [id number], [place] tel:[phone] [facility] No Information Ozzie Fournier. [address], [place], [id number], [place]. tel:[phone] Referring Provider: John Majano, [facility] [address] , [place], [address]. tel:[phone] Family History Family Member Type Diagnosis Age At Onset No Information Payers Payer name Insurance type Covered alliance party ID Authoriza tion(s) [facility] ACCESS BL [id number] Social History Type Description Quantity Date Captured [...]
[2024-08-20 19:31] VITALS: BP 131/74; PULSE 102; RESP 20; TEMP 38.3; O2SAT 100
[2024-08-20 19:43] LABS: EDUAAPPEAR Cloudy; EDUABILI Negative (Negative); EDUABLOOD 3+ (Negative); EDUACOLOR1 Tea Colored; EDUAGLUCOSE Negative (Negative); EDUAKETONE Negative (Negative); EDUALEUKO 2+ (Negative); EDUANITRATE Positive (Negative); EDUAPROTEIN 2+ (Negative); EDUAUROBILI 0.2
--- NOTE | 2024-08-20 19:58 | ED.GENADULT ---
HPI - General Adult General Chief complaint: Urogenital-Female Stated complaint: Urinary Problem/Chills Source: patient and family Mode of arrival: ambulatory Limitations: no limitations History of Present Illness HPI narrative: Patient presents for evaluation of urinary symptoms. Symptom onset 4 days ago. She reports dysuria, urinary frequency, incontinence, tremor, foul-smelling urine which is cloudy in appearance. She has a history of urinary tract infections and is under the care of urology. It sounds like she was recently treated for urinary tract infection and completed therapy about 4 days ago. She denies fever, nausea or vomiting. Related Data Home Medications ?Medication ?Instructions ?Recorded ?Confirmed ?Last Taken ?Type biotin 2,500 mcg tablet 5,000 mcg PO BID 11/17/20 07/31/21 Unknown History cholecalciferol (vitamin D3) 125 125 mcg PO DAILY 11/17/20 07/31/21 Unknown History mcg (5,000 unit) tablet (Vitamin D3) cyanocobalamin (vitamin B-12) 1 mcg subcut Q3H6XD 11/17/20 07/31/21 Unknown History 1,000 mcg/mL injection solution duloxetine 20 mg capsule,delayed 20 mg PO DAILY 11/17/20 08/20/24 Unknown History release fluoride (sodium) 1.1 % dental gel 1 applic dental QAM AND QPM 11/17/20 07/31/21 Unknown History (PreviDent 5000 Dry Mouth) gabapentin 800 mg tablet 800 mg PO QID 11/17/20 07/31/21 Unknown History omeprazole 40 mg capsule,delayed 40 mg PO DAILY 11/17/20 07/31/21 Unknown History release potassium chloride 20 mEq 20 meq PO DAILY 11/17/20 07/31/21 Unknown History tablet,extended release pyridoxine (vitamin B6) 100 mg 100 mg PO DAILY 11/17/20 07/31/21 Unknown History tablet thiamine HCl (vitamin B1) 100 mg 100 mg PO DAILY 11/17/20 07/31/21 Unknown History tablet turmeric root extract 500 mg 500 mg PO DAILY 11/17/20 07/31/21 Unknown History capsule Dilaudid 08/20/24 Unknown History duloxetine 60 mg capsule,delayed mg PO 08/20/24 Unknown History release memantine 5 mg tablet mg 08/20/24 Unknown History mirabegron 50 mg tablet,extended mg PO 08/20/24 Unknown History release 24 hr solifenacin 10 mg tablet mg PO 08/20/24 Unknown History Allergies Allergy/AdvReac Type Severity Reaction Status Date / Time codeine Allergy Mild Itching Verified 08/20/24 19:19 Review of Systems Review of Systems: CONSTITUTIONAL: Denies fever, chills, or sweats. EYES: Denies visual changes, redness, or discharge. ENT: Denies rhinorrhea, congestion, sore throat, or otalgia. CARDIOVASCULAR: Denies chest pain, palpitations, or edema. RESPIRATORY: Denies cough or dyspnea. GASTROINTESTINAL: Denies abdominal pain, nausea, vomiting, or diarrhea. GENITOURINARY: Reports dysuria, urinary frequency, incontinence SKIN: Denies rash or itching. MUSCULOSKELETAL: Denies back pain, joint pain, or myalgia. NEUROLOGIC: Reports tremor. Denies headache, numbness, dizziness, or weakness. PSYCHIATRIC: Denies anxiety or depression. [facility], [facility] Past Medical History Medical History Depression H/O gastroesophageal reflux (GERD) Surgical History Surgical History History of lumbar surgery Family History Family History Mother Family history non-contributory Social History Social History Substance use: never Living arrangements: with family Additional living arrangements comments: Occupation/Education: retired Gender identity (if verbalized by the patient): Female Sexual Orientation (if Verbalized by the Patient): Straight or Heterosexual Spiritual care concerns: No Exam Narrative: GENERAL: Well-appearing, well-nourished, and in no acute distress. HEAD: Normocephalic, atraumatic. EYES: PERRLA and EOMI. ENT: Nares clear, no rhinorrhea or epistaxis. Mucous membranes moist. Oropharynx without tonsillar hypertrophy exudate or other lesions. Bilateral TMs pearly davis nonbulging NECK: Supple. No adenopathy or masses. No carotid bruits or JVD CHEST: Clear to auscultation. No respiratory distress. No wheezes rales or rhonchi HEART:Rate 102. Regular rhythm. No murmur heard. Normal peripheral pulses. ABDOMEN: Soft, nontender, nondistended, normal active bowel sounds. EXTREMITIES: Normal range of motion. No edema. SKIN: Warm, dry, no rash. NEURO: + tremor. No focal deficits. Alert and oriented x3. PSYCH: Normal mood and affect. Course Course Emergency Course: This is a 69-year-old female who presented for evaluation of urinary symptoms. She has a tremor, is tachycardic and febrile. She is also pale. I am concerned she has sepsis. I recommended she be transferred to the hospital for further evaluation. [facility] as her facility of choice. I contacted the emergency department at [facility] and spoke with DANAE Griffin, who indicates that Dr Rodriguez will accept pt to the Dept there. Pt taken via private vehicle. Level of Care: Express Care Visit Vital Signs Vital signs: Vital Signs Temperature 38.3 C H 08/20/24 19:31 Pulse Rate 102 H 08/20/24 19:31 Respiratory Rate 08/20/24 19:31 Blood Pressure 131/74 08/20/24 19:31 Pulse Oximetry 08/20/24 19:31 Oxygen Delivery Room Air 08/20/24 19:31 Temperature 38.3 C H 08/20/24 19:31 Pulse Rate 102 H 08/20/24 19:31 Respiratory Rate 08/20/24 19:31 Blood Pressure 131/74 08/20/24 19:31 Pulse Oximetry 08/20/24 19:31 Oxygen Delivery Room Air 08/20/24 19:31 Medical Decision Making Vital Signs Vital Signs: Vital Signs Temperature 38.3 C H 08/20/24 19:31 Pulse Rate 102 H 08/20/24 19:31 Respiratory Rate 08/20/24 19:31 Blood Pressure 131/74 08/20/24 19:31 Pulse Oximetry 08/20/24 19:31 Oxygen Delivery Room Air 08/20/24 19:31 Temperature 38.3 C H 08/20/24 19:31 Pulse Rate 102 H 08/20/24 19:31 Respiratory Rate 20 08/20/24 19:31 Blood Pressure 131/74 08/20/24 19:31 Pulse Oximetry 08/20/24 19:31 Oxygen Delivery Room Air 08/20/24 19:31 Lab Data Labs: Lab Results 08/20/24 Range/Units 19:40 POC Urine Color Tea colored POC Urine Clarity Cloudy POC Urine pH 6.0 POC Ur Specif [place] 1.020 POC Urine Protein 2+ (Negative) POC Ur Glucose (UA) Negative (Negative) POC Urine Ketones Negative (Negative) POC Urine Blood 3+ (Negative) POC Urine Nitrite Positive (Negative) POC Urine Bilirubin Negative (Negative) POC Urine Urobilinogen 0.2 POC U Leukocyte Esteras 2+ (Negative) Discharge Plan Discharge Clinical Impression: Urinary tract infection, Tachycardia, Fever Patient Disposition: Acute Care Hospital Condition: Stable Patient Language: Romanian Prescriptions: No Action potassium chloride 20 mEq tablet extended release 20 meq PO DAILY turmeric root extract 500 mg Capsule 500 mg PO DAILY thiamine HCl (vitamin B1) 100 mg Tablet 100 mg PO DAILY pyridoxine (vitamin B6) 100 mg Tablet 100 mg PO DAILY omeprazole 40 mg capsule,delayed release(DR/EC) 40 mg PO DAILY gabapentin 800 mg tablet 800 mg PO QID fluoride (sodium) [PreviDent 5000 Dry Mouth] 1.1 % gel 1 applic dental QAM AND QPM duloxetine 20 mg capsule,delayed release(DR/EC) 20 mg PO DAILY cyanocobalamin (vitamin B-12) 1,000 mcg/mL solution 1 mcg subcut Q3H6XD cholecalciferol (vitamin D3) [Vitamin D3] 125 mcg (5,000 unit) Tablet 125 mcg PO DAILY biotin 2,500 mcg Tablet 5,000 mcg PO BID memantine 5 mg tablet duloxetine 60 mg capsule,delayed release(DR/EC) PO solifenacin 10 mg tablet PO mirabegron 50 mg tablet extended release 24 hr PO Dilaudid Patient Comments: PER PAIN PUMP Follow-up/Referrals: Doroteo,Bhanu Danielson MD [Primary Care Provider] - Time of Disposition: 19:57
== END 2024-08-20 20:03 | disposition short-term general hospital (02) ==
PROVIDERS: Emergency Provider Nurse Practitioner; PCP Internal Medicine
DX: N39.0 Urinary tract infection, site not specified (principal); R00.0 Tachycardia, unspecified; R50.9 Fever, unspecified; K21.9 Gastro-esophageal reflux disease without esophagitis
CPT/HCPCS: 81003; 87077; 87086; 87186; 99213; G0463

== ENCOUNTER 2025-02-02 18:04 | Emergency (ER) | payer MEDICARE, SELFPAY ==
[2025-02-02 18:10] VITALS: BP 121/71; PULSE 80; RESP 20; TEMP 36.6; O2SAT 100
--- NOTE | 2025-02-02 18:16 | ED.FEMALEGU ---
HPI - Female Genitourinary General Chief complaint: Urogenital-Female Stated complaint: UTI Time Seen by Provider: 02/02/25 18:17 Source: patient, RN notes reviewed and old records reviewed Mode of arrival: ambulatory Limitations: no limitations History of Present Illness HPI Narrative: 69 year old female presents to [facility] care with complaints of completing antibiotic on Thursday of Cefdinir with return of symptoms of UTI on Thursday. Patient reports that she was treated 2 weeks ago for UTI with Cefdinir with recurrent UTI symptoms present which includes burning, urgency and frequency of urination with no fevers or any complaints of nausea or vomiitng. Patient reports no abdominal pain pain or any flank pain.Patient reports that she has seen urology.. MD elicited complaint: UTI Pertinent past history: recurrent UTIs Onset (ago): day(s) (3-4 days) Location of symptoms: urethra Severity: moderate Quality of pain: burning Vaginal discharge: none Vaginal bleeding: none Urinary symptoms: Dysuria, Urgency and Frequency Treatment prior to arrival: other (completed Cefdinir past Thursday symptoms started next day) Related Data Home Medications ?Medication ?Instructions ?Recorded ?Confirmed ?Last Taken ?Type biotin 2,500 mcg tablet 5,000 mcg PO BID 11/17/20 07/31/21 Unknown History cholecalciferol (vitamin D3) 125 125 mcg PO DAILY 11/17/20 07/31/21 Unknown History mcg (5,000 unit) tablet (Vitamin D3) cyanocobalamin (vitamin B-12) 1 mcg subcut Q3H6XD 11/17/20 07/31/21 Unknown History 1,000 mcg/mL injection solution duloxetine 20 mg capsule,delayed 20 mg PO DAILY 11/17/20 08/20/24 Unknown History release fluoride (sodium) 1.1 % dental gel 1 applic dental QAM AND QPM 11/17/20 07/31/21 Unknown History (PreviDent 5000 Dry Mouth) gabapentin 800 mg tablet 800 mg PO QID 11/17/20 07/31/21 Unknown History omeprazole 40 mg capsule,delayed 40 mg PO DAILY 11/17/20 07/31/21 Unknown History release potassium chloride 20 mEq 20 meq PO DAILY 11/17/20 07/31/21 Unknown History tablet,extended release pyridoxine (vitamin B6) 100 mg 100 mg PO DAILY 11/17/20 07/31/21 Unknown History tablet thiamine HCl (vitamin B1) 100 mg 100 mg PO DAILY 11/17/20 07/31/21 Unknown History tablet turmeric root extract 500 mg 500 mg PO DAILY 11/17/20 07/31/21 Unknown History capsule Dilaudid 08/20/24 Unknown History duloxetine 60 mg capsule,delayed mg PO 08/20/24 Unknown History release memantine 5 mg tablet mg 08/20/24 Unknown History mirabegron 50 mg tablet,extended mg PO 08/20/24 Unknown History release 24 hr solifenacin 10 mg tablet mg PO 08/20/24 Unknown History Allergies Allergy/AdvReac Type Severity Reaction Status Date / Time codeine Allergy Mild Itching Verified 08/20/24 19:19 Review of Systems Review of Systems: CONSTITUTIONAL: Denies fever, chills, or sweats. CARDIOVASCULAR: Denies chest pain, palpitations, or edema. RESPIRATORY: Denies cough or dyspnea. GASTROINTESTINAL: Denies abdominal pain, nausea, vomiting, or diarrhea. GENITOURINARY: Reports dysuria, frequency, urgency. Denies flank pain or hematuria. SKIN: Denies rash or itching. MUSCULOSKELETAL: reports chronic back pain and neuropathy, has pain pump of dilaudid. Denies CVA tenderness NEUROLOGIC: Denies headache All systems reviewed & are unremarkable except as noted in HPI and below PMFSH Past Medical History Medical History (Updated 02/03/25 @ 16:24 by Jody Lal APRN) Peripheral neuropathy Implantable intrathecal infusion pump present Depression H/O gastroesophageal reflux (GERD) Surgical History Surgical History (Updated 02/03/25 @ 16:18 by Jody Lal APRN) H/O cervical discectomy C6 H/O gastric bypass Hx of appendectomy History of cholecystectomy History of lumbar surgery Family History Family History Mother Family history non-contributory Social History Social History Substance use: never Living arrangements: with family Additional living arrangements comments: Occupation/Education: retired Gender identity (if verbalized by the patient): Female Sexual Orientation (if Verbalized by the Patient): Straight or Heterosexual Spiritual care concerns: No Comments At time of signature, agree with nursing past medical, surgical, social and family history. There is no relevant family history pertinent to the presenting complaint Exam Narrative: GENERAL: chronic ill-appearing, well-nourished, and in no acute distress. HEAD: Normocephalic, atraumatic. NECK: Supple.no lymphadenopathy CHEST: Clear to auscultation. No respiratory distress.no cough noted SAO2 100% on room air HEART: Regular rate and rhythm. No murmur heard. Normal peripheral pulses. ABDOMEN: Soft, nontender, No McBurney point tenderness ro supra pubic tenderness,nondistended, normal active bowel sounds. No CVA tenderness reports burning, urgency and frequency of urination EXTREMITIES: Normal range of motion. No edema.has history of peripheral neuropathy, has had prior lumbar and cervical spinal surgery, chronic pain history of intrathecal pain pump with dilaudid SKIN: Warm, dry, no rash. NEURO: No focal deficits. Alert and oriented x3. Course Course Emergency Course: Patient is aware of diagnosis, understands and agrees to treatment plan.? Anticipatory guidance given.? Patient agrees to follow-up as directed and is aware of reasons to seek care at the emergency department. Portions of this record may have been created with voice recognition software Level of Care: Express Care Visit Vital Signs Vital signs: Vital Signs Temperature 36.6 C 02/02/25 18:10 Pulse Rate 80 02/02/25 18:10 Respiratory Rate 20 02/02/25 18:10 Blood Pressure 121/71 02/02/25 18:10 Pulse Oximetry 100 02/02/25 18:10 Oxygen Delivery Room Air 02/02/25 18:10 Temperature 36.6 C 02/02/25 18:10 Pulse Rate 80 02/02/25 18:10 Respiratory Rate 20 02/02/25 18:10 Blood Pressure 121/71 02/02/25 18:10 Pulse Oximetry 100 02/02/25 18:10 Oxygen Delivery Room Air 02/02/25 18:10 reviewed MDM - Female Genitourinary MDM Narrative Medical decision making narrative: Exam findings and UA show no acute concerns or changes; patient is non-toxic appearing and is in no distress.? Patient is appropriate for outpatient treatment and follow-up. Differential Diagnosis Differential diagnosis: Likely urinary tract infection, cystitis and other (dysuria, recurrent UTI's) Medical Records Attestation: I reviewed the patient's medical records. Lab Data Attestation: I reviewed the patient's lab results. Lab results narrative: urine dip reviewed with blood 1+ and leukocytes + noted, sent for culture Labs: Lab Results 02/02/25 Range/Units 18:22 POC Urine Color Yellow POC Urine Clarity Clear POC Urine pH 7.0 POC Ur Specif Temperance 1.025 POC Urine Protein Negative (Negative) POC Ur Glucose (UA) Negative (Negative) POC Urine Ketones Negative (Negative) POC Urine Blood 1+ (Negative) POC Urine Nitrite Negative (Negative) POC Urine Bilirubin Negative (Negative) POC Urine Urobilinogen 0.2 POC U Leukocyte Esteras 1+ (Negative) reviewed Critical Care Time Critical Care Time Critical Care Time: No Discharge Plan Discharge Clinical Impression: Urinary tract infection Qualifiers: Urinary tract infection type: site unspecified Hematuria presence: with hematuria Qualified Code(s): N39.0 - Urinary tract infection, site not specified Patient Disposition: Home Condition: Stable Instructions: Antibiotic Form, Urinary Tract Infection in Women (ED) Additional Instructions: Increase fluids especially cranberry juice and water Avoid caffeine and carbonated beverages Antibiotic as directed Tylenol/ibuprofen for pain or fever Follow-up with her primary care provider if further problems or concerns Recheck if you have fever over 101, nausea and vomiting. make follow-up appointment with Urology If your symptoms persist, change or worsen significantly before you can contact your personal physician then please, without delay, go to the emergency department for further evaluation. Follow-up with PCP in 7-10 days or sooner if needed Patient Language: Kyrgyz Prescriptions: New sulfamethoxazole-trimethoprim [Bactrim DS] 800-160 mg tablet 1 tablet PO Q12H Qty: 14 0RF No Action potassium chloride 20 mEq tablet extended release 20 meq PO DAILY turmeric root extract 500 mg Capsule 500 mg PO DAILY thiamine HCl (vitamin B1) 100 mg Tablet 100 mg PO DAILY pyridoxine (vitamin B6) 100 mg Tablet 100 mg PO DAILY omeprazole 40 mg capsule,delayed release(DR/EC) 40 mg PO DAILY gabapentin 800 mg tablet 800 mg PO QID fluoride (sodium) [PreviDent 5000 Dry Mouth] 1.1 % gel 1 applic dental QAM AND QPM duloxetine 20 mg capsule,delayed release(DR/EC) 20 mg PO DAILY cyanocobalamin (vitamin B-12) 1,000 mcg/mL solution 1 mcg subcut Q3H6XD cholecalciferol (vitamin D3) [Vitamin D3] 125 mcg (5,000 unit) Tablet 125 mcg PO DAILY biotin 2,500 mcg Tablet 5,000 mcg PO BID memantine 5 mg tablet duloxetine 60 mg capsule,delayed release(DR/EC) PO solifenacin 10 mg tablet PO mirabegron 50 mg tablet extended release 24 hr PO Dilaudid Patient Comments: PER PAIN PUMP sulfamethoxazole-trimethoprim [Bactrim DS] 800-160 mg tablet 1 tablet PO Q12H 7 Days Qty: 14 0RF Rx Instructions: hold taking potassium while taking Bactrim Follow-up/Referrals: Doroteo,Bhanu Danielson MD [Primary Care Provider] Time of Disposition: 18:58 Quality Rogers Coma Scale Eyes: Open Verbal: Oriented and Alert Motor: Follows Commands Rogers Coma Total Score: 15
--- OUTSIDE RECORDS SUMMARY | 2025-02-02 18:25 | XMS_ITS | Encounter Summary ---
Author Organization [facility] Address [address] [place] [address] Phone Care Team Providers Care Home Manager Name Role Phone Shamir Sadler MD Primary Care Provider [phone] [phone] Reason for Visit * Reason Comments Medication Refill Encounter Details Date Type Department Care Team (Late st Contact Info) Description 01/23/2025 Refill [facility] [address] [place] [address] Prasanth Mart APRN, CUSTOMS BROKERAGE MANAGER [address] [place] [address] Medication Refill Social History Tobacco Use Types [...] on file documented as of this encounter Miscellaneous Notes * Telephone Encounter - Mary Ulloa RN - 01/23/2025 1:22 PM CST Refill denied - See Refusal reason REWIND MACHINE OPERATOR documented in this encounter Plan of Treatment Not on file documented as of this encounter Goals Goal Patient Goal Type Associated Problems Recent Progress Patient-Stated? Author Behavioral Health Behavioral Health On track(2022 9:40 AM COIL REWIND MACHINE OPERATOR) Yes Wilfrid Patel, PHILATELIC CONSULTANT Note: I need help coping with family drama and my chronic pain, setting and maintaining healthy boundaries. Goal/Objective: Increase coping skills. Anticipated Time Frame for Goal Completion: 6 months Goal Reviewed with: patient Readiness to change: Ready to change Department associated with goal: [facility] Steps to achieve [...] Time PHQ-9 Depression Total Score: 6 10/08/19 23 10:00 AM CDT documented as of this encounter Care Teams Home Manager Relationship Specialty Start Date End Date Shamir Sadler MD [address] [place] [address] PCP - General Internal Medicine 08/19/22 documented as of this encounter
--- OUTSIDE RECORDS SUMMARY | 2025-02-02 18:25 | XMS_ITS | Encounter Summary ---
Author Organization [facility] Address [address] [place] [address] Phone Care Team Providers Care Network Internship Name Role Phone Shamir Sadler MD Primary Care Provider [phone] [phone] Reason for Visit * Reason Comments Medication Refill Encounter Details Date Type Department Care Team (Late st Contact Info) Description 12/26/2024 Refill [facility] [address] [place] [address] Prasanth Mart DATA PROCESSING SPECIALIST, PRINT SHOP HELPER [address] [place] [address] Medication Refill Social History Tobacco Use Types [...] encounter Miscellaneous Notes * Telephone Encounter - Michelle Barnes RN - 12/26/2024 10:15 AM CDT Refill denied - See Refusal reason documented in this encounter Plan of Treatment Not on file documented as of this encounter Goals Goal Patient Goal Type Associated Problems Recent Progress Patient-Stated? Author Behavioral Health Behavioral Health On track(2022 9:40 AM EMPLOYMENT CONSULTANT) Yes Wilfrid Patel, JEWELRY COATER Note: I need help coping with family drama and my chronic pain, setting and maintaining healthy boundaries. Goal/Objective: Increase coping skills. Anticipated Time Frame for Goal Completion: 6 months Goal Reviewed with: patient Readiness to change: Ready to change Department associated with goal: [facility] Steps [...] documented as of this encounter Care Teams Network Internship Relationship Specialty Start Date End Date Shamir Sadler MD [address] [place] [address] PCP - General Internal Medicine 08/19/22 documented as of this encounter
--- OUTSIDE RECORDS SUMMARY | 2025-02-02 18:25 | XMS_ITS | Encounter Summary ---
Author Organization [facility] Address [address] [place] [address] Phone Care Team Providers Care Cotton Header Name Role Phone Shamir Sadler MD Primary Care Provider [phone] [phone] Reason for Visit * Reason Comments Medication Refill Encounter Details Date Type Department Care Team (Late st Contact Info) Description 12/25/2024 Refill [facility] [address] [place] [address] Prasanth Mart APRN, PATENT LITIGATION ASSOCIATE [address] [place] [address] Medication Refill Social History Tobacco Use Types [...] Telephone Encounter - Mary Ulloa RN - 12/26/2024 8:16 AM CDT Refill denied - See Refusal reason documented in this encounter Plan of Treatment Not on file documented as of this encounter Goals Goal Patient Goal Type Associated Problems Recent Progress Patient-Stated? Author Behavioral Health Behavioral Health On track(2022 9:40 AM DIRECT MARKETING ANALYST) Yes Wilfrid Patel, MECHANICAL PENCILS ASSEMBLER Note: I need help coping with family drama and my chronic pain, setting and maintaining healthy boundaries. Goal/Objective: Increase coping skills. Anticipated Time Frame for Goal Completion: 6 months Goal Reviewed with: patient Readiness to change: Ready to change Department associated with goal: [facility] Steps to [...] documented as of this encounter Care Teams Cotton Header Relationship Specialty Start Date End Date Shamir Sadler MD [address] [place] [address] PCP - General Internal Medicine 08/19/22 documented as of this encounter
--- OUTSIDE RECORDS SUMMARY | 2025-02-02 18:26 | XMS_ITS | Encounter Summary ---
Author Organization [facility] Address [address] [place] [address] [place] [address] Care Team Providers Care Supply Chain Associate Name Role Phone Shamir Sadler MD Primary Care Provider [phone] [phone] Encounter Details Date Type Department Care Team [...] on file Legal Sex Female 6:24 AM SOLE INKER Gender Identity Not on file Sexual Orientation [...] documented as of this encounter Care Teams Supply Chain Associate Relationship Specialty Start Date End Date Shamir Sadler MD PCP - General Internal Medicine 12/06/19 documented as of this encounter
--- OUTSIDE RECORDS SUMMARY | 2025-02-02 18:26 | XMS_ITS | Clinical Summary ---
Author Organization [facility] Address [address] [place] [address] Phone Care Team Providers Care Family Law Paralegal Name Role Phone Shamir Sadler MD Primary Care Provider [phone] [phone] Medications HYDROmorphone HCl (DILAUDID PO) Take by [...] Encounters Date Type Department Care Team Description 01/23/2025 Refill [facility] [address] [place] [id number] Prasanth Mart APRN, HAIR WEAVER Medication Refill 12/26/2024 Refill [facility] [address] [place] [address] Prasanth Mart APRN, HAIR WEAVER Medication Refill 12/25/2024 Refill [facility] [address] [place] [phone] Mart, Prasanth L, STORE WAREHOUSE ASSOCIATE, HAIR WEAVER Medication Refill from Last 3 Months Social [...] Last Done Comments DEXA Bone Density 1956 Varicella Immunization (1 of 2 - 13+ 2-dose series) 1969 Cologuard 2001 Colonoscopy 2001 Colorectal Cancer Screening 2001 Immunochemical Fecal Occult Blood 2001 Pneumococcal Immunization (5 0+ years) (1 of 1 - PCV) 2006 Zoster Immunization (2 of 3) 04/19/2015 02/22/2015 Mammogram 05/31/2021 05/31/2020 Medicare Initial AWV [id number] 04/16/2022 Influenza Immunization (#1) 2024 SARS-COV-2 Immunization ( - season) 2024 04/15/2021, 05/02/2020, 04/14/2020 Respiratory Syncytial Virus (RSV) Immunization (Adult) (1 [...] Health Behavioral Health On track(2022 9:40 AM SPRAY GUN STRIPER) Yes Wilfrid Patel, GINNING OPERATOR Note: I need help coping with family drama and my chronic pain, setting and maintaining healthy boundaries. Goal/Objective: Increase coping skills. Anticipated Time Frame for Goal Completion: 6 months Goal Reviewed with: patient Readiness to change: Ready to change Department associated with goal: [facility] Steps to achieve goal: [...] 1x/month at least 6 sessions Insurance MEDICARE [facility] Care Teams Family Law Paralegal Relationship Specialty Start Date End Date Shamir Sadler MD [address] [place] [id number] PCP - General Internal Medicine 08/19/22
--- OUTSIDE RECORDS SUMMARY | 2025-02-02 18:26 | XMS_ITS | Encounter Summary ---
Author Organization [facility] Health Address [address] [place] [address] [place] [address] Care Team Providers Care Deburrer Strip Name Role Phone Shamir Sadler MD Primary Care Provider [phone] [phone] Encounter Details Date Type Department Care Team [...] file Legal Sex Female 6:24 AM SUPERVISOR COOK HOUSE Gender Identity Not on file Sexual Orientation [...] documented as of this encounter Care Teams Deburrer Strip Relationship Specialty Start Date End Date Shamir Sadler MD PCP - General Internal Medicine 12/06/19 documented as of this encounter
--- OUTSIDE RECORDS SUMMARY | 2025-02-02 18:26 | XMS_ITS | Encounter Summary ---
Author Organization [facility] Address [address] [place] [address] [place] [address] Care Team Providers Care Natural Resources Professor Name Role Phone Shamir Sadler MD Primary Care Provider [phone] [phone] Encounter Details Date Type Department Care Team [...] on file Legal Sex Female 6:24 AM NET SORTER Gender Identity Not on file Sexual Orientation [...] on filedocumented in this encounter Care Teams Natural Resources Professor Relationship Specialty Start Date End Date Shamir Sadler MD PCP - General Internal Medicine 12/06/19 documented as of this encounter
--- OUTSIDE RECORDS SUMMARY | 2025-02-02 18:26 | XMS_ITS | Clinical Summary ---
Author Organization [facility] Address [address] [address] Care Team Providers Care Granulator Name Role Phone Shamir Sadler MD Primary Care Provider [phone] [phone] Source Comments [facility],non-owned Affiliates and Associated Physician Practices is amultiple site organization consisting of ambulatory clinics and hospital sitesin [place], [place], [place] and [place]. This disclosure is being madepursuant to the Care Everywhere program and may not contain all information available regarding this patient. Last updated 17.[facility] Allergies Active Allergy Reactions Criticality Noted Date [...] on file Legal Sex Female 6:24 AM AIX ARCHITECT Gender Identity Not on file Sexual Orientation [...] FLEX SIG - COLON CA SCREENING 1956 LIPID TESTING 1956 HEPATITIS C SCREENING 05/07/1974 DTAP/TDAP/TD VACCINES (1 - Tdap) 1975 PNEUMOCOCCAL VACCINE 50+ (1 of 1 - PCV) 2006 ZOSTER VACCINE (1 of 2) 2006 MAMMOGRAM 05/31/2022 05/31/2020 DEPRESSION SCREENING 03/16/2024 COVID-19 VACCINE (1 - 2024-2 6 season) 2024 INFLUENZA VACCINE (#1) 2024 Respiratory Syncytial Virus (RSV) Vaccine Pt: or over 60 yrs (1 - 1-dose 75+ series) 2031 HEPATITIS B VACCINE Aged Out No longe [...] this topic Medical Devices Implanted Type Area Silk Winding Machine Operator Device Identifier Shelf Expiration Date Model / Serial / Lot Slnt Dura Duraseal Pg Trilysine Amine 5 Implanted:Qty: 1 on 08/23/2018 by Tano Drew MD at [facility] Right: Spine Lumbar Integra [employer] Asaf 09/13/2019 [id number] / / [id number] Graft Tissue Drgn + Bvn Clgn Mtrx 1x1in Implanted:Qty: 1 on 08/23/2018 by Tano Drew MD at [facility] Right: Spine Lumbar Integra [employer] 01/13/2021 [id number] / / [id number] Insurance ANTHEM Advance Directives Documents on File Type Date Recorded Patient Telephone Claims Representative Expl anation Adv Directive/Living Will/POA 08/05/2018 8:57 [...] 12:21 PM 09/03/2018 3:40 PM Care Teams Granulator Relationship Specialty Start Date End Date Shamir Sadler MD PCP - General Internal Medicine 12/06/19
--- OUTSIDE RECORDS SUMMARY | 2025-02-02 18:26 | XMS_ITS | Encounter Summary ---
Author Organization [facility] Address [address] [place] [address] Phone Care Team Providers Care Linux Network Administrator Name Role Phone Shamir Sadler MD Primary Care Provider +1 -[phone] Reason for Visit * Reason Comments Medication Refill Encounter Details Date Type Department Care Team (Late st Contact Info) Description 04/25/2024 Refill [facility] [address] [place] [address] Prasanth Mart APRN, INSIGHT DIRECTOR [address] [place] [address] Medication Refill Social History Tobacco Use Types [...] Health Behavioral Health On track(2022 9:40 AM DIRECTOR OF ONLINE EDUCATION) Yes Wilfrid Patel, VISUAL MERCHANDISING MANAGER Note: I need help coping with family drama and my chronic pain, setting and maintaining healthy boundaries. Goal/Objective: Increase coping skills. Anticipated Time Frame for Goal Completion: 6 months Goal Reviewed with: patient Readiness to change: Ready to change Department associated with goal: [facility] Steps to achieve [...] documented as of this encounter Care Teams Linux Network Administrator Relationship Specialty Start Date End Date Shamir Sadler MD [address] [place] [address] PCP - General Internal Medicine 08/19/22 documented as of this encounter
--- OUTSIDE RECORDS SUMMARY | 2025-02-02 18:26 | XMS_ITS | Encounter Summary ---
Author Organization [facility] Health Address [address] [place] [address] [place] [address] Care Team Providers Care Dressage Judge Name Role Phone Shamir Sadler MD Primary Care Provider +1 [phone] Encounter Details Date Type Department Care Team (Late st Contact Info) Description 10/26/2018 M Outpatient Visit EXTERNAL NON-[facility] DEPT Unknown, Provider Social History Tobacco Use Types Packs/Day Years Used Date Smoking Tobacco: Never Smokeless Tobacco: Never Alcohol Use Standard Drinks/Week Comments No 0 (1 standard drink = 0.6 oz pur e alcohol) Comments Unknown Sex and Gender Information Value Date Recorded Sex Assigned at Not on file Legal Sex Female 6:24 AM LITHOGRAPH OPERATOR Gender Identity Not on file Sexual [...] documented as of this encounter Care Teams Dressage Judge Relationship Specialty Start Date End Date Shamir Sadler MD PCP - General Internal Medicine 12/06/19 documented as of this encounter
--- OUTSIDE RECORDS SUMMARY | 2025-02-02 18:26 | XMS_ITS | Encounter Summary ---
Author Organization [facility] Address [address] [place] [address] Phone Care Team Providers Care Him Director Name Role Phone Shamir Sadler MD Primary Care Provider [phone] Reason for Visit * Reason Comments Medication Refill Encounter Details Date Type Department Care Team (Late st Contact Info) Description 07/22/[address] [facility] UROLOGY [address] [place] [address] Prasanth Mart APRN, WARP TYING MACHINE TENDER [address] [place] [address] Medication Refill Social History Tobacco Use Types [...] Health Behavioral Health On track(2022 9:40 AM SHOP ROUTER) Yes Wilfrid Patel, CLINICAL ADMINISTRATIVE COORDINATOR Note: I need help coping with family drama and my chronic pain, setting and maintaining healthy boundaries. Goal/Objective: Increase coping skills. Anticipated Time Frame for Goal Completion: 6 months Goal Reviewed with: patient Readiness to change: Ready to change Department associated with goal: [facility] Steps to [...] documented as of this encounter Care Teams Him Director Relationship Specialty Start Date End Date Shamir Sadler MD [address] [place] [address] PCP - General Internal Medicine 08/19/22 documented as of this encounter
--- OUTSIDE RECORDS SUMMARY | 2025-02-02 18:26 | XMS_ITS | Encounter Summary ---
Author Organization [facility] Health Address [address] [place] [address] 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
--- OUTSIDE RECORDS SUMMARY | 2025-02-02 18:26 | XMS_ITS | Encounter Summary ---
Author Organization [facility] Health Address [address] [place] [address] 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
--- OUTSIDE RECORDS SUMMARY | 2025-02-02 18:26 | XMS_ITS | Encounter Summary ---
Author Organization [facility] Address [address] [place] [address] Phone Care Team Providers Care Sand Caster Name Role Phone Shamir Sadler MD Primary Care Provider [phone] Reason for Visit * Reason Comments Medication Refill Encounter Details Date Type Department Care Team (Late st Contact Info) Description 05/28/[address] 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 Goal/Objective: Increase coping skills. Anticipated Time Frame for Goal Completion: 6 months Goal Reviewed with: patient Readiness to change: Ready to change Department associated with goal: [facility] Steps to achieve [...] documented as of this encounter Care Teams Sand Caster Relationship Specialty Start Date End Date Shamir Sadler MD [address] [place] [address] PCP - General Internal Medicine 08/19/22 documented as of this encounter
--- OUTSIDE RECORDS SUMMARY | 2025-02-02 18:26 | XMS_ITS | Encounter Summary ---
Author Organization [facility] Address [address] [place] [address] [place] [address] Care Team Providers Care Wood Milling Machine Hand Name Role Phone Shamir Sadler MD Primary Care Provider [phone] [phone] Encounter Details Date Type Department Care Team (Late st Contact Info) Description 10/11/2019 Lab Requisition [facility] Pathology Lab [address] [place] [address] Natividad Lara MD [address] [facility] [place] [address] Social History Tobacco Use Types Packs/Day Years Used Date Smoking Tobacco: Never Smokeless Tobacco: Never Alcohol Use Standard Drinks/Week Comments No 0 (1 standard drink = 0.6 oz pur e alcohol) Comments Unknown Sex and Gender Information Value Date Recorded Sex Assigned at Not on file 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 Electron microscopy ([id number]) was performed and shows loss of large and small myelinated axons, collagen pockets and artifactual changes in myelin without evidence of amyloid deposition. 11/16/2019 6:19 AM [facility] PATHOLOGY LAB Clinical History 64-year-old woman with acute onset severe right lower extremity pain with ankle weakness about 14 months ago. She underwent L4-5 laminectomy that was complicated by MRSA infection. Over time she developed severe weakness and sensory changes on the left side. 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 11/16/2019 6:19 AM [facility] PATHOLOGY LAB Gross Description The specimen is received fresh labeled with the patient's name Jody Bhakta and right sural nerve. It consists of a cylindrical piece of soft white nerve which measures 4.7 cm in length and 0.2 cm in diameter. Portions of the tissue are sampled for light microscopy and frozen. Electron microscopy was not requested. 11/16/2019 6:19 AM [facility] PATHOLOGY LAB Disclaimer The performance characteristics of all immunohistochemical and indirect immunofluorescence stains (if any) cited in this report were determined by the Histopathology Laboratory of [facility]. Some of these tests were developed [...] the attending (teaching) pathologist. 11/16/2019 6:19 AM [facility] PATHOLOGY LAB Embedded Images 11/16/2019 6:19 AM [facility] PATHOLOG[facility] LAB Pathology/Cytolo gy BIOPSY OF NERVE / Unknown 10/11/2019 9:47 AM CDT 10/11/2019 11:35 AM CDT us Natividad Lara MD LAB - PATHOLOGY/CYTOLOGY ORDERAB LES Final Result [facility] PATHOLOGY LAB [address] [place] [address], [facility] [phone] documented in this encounter Visit Diagnoses Not on filedocumented in this encounter Care Teams Wood Milling Machine Hand Relationship Specialty Start Date End Date Shamir Sadler MD PCP - General Internal Medicine 12/06/19 documented as of this encounter
--- OUTSIDE RECORDS SUMMARY | 2025-02-02 18:26 | XMS_ITS | Encounter Summary ---
Author Organization [facility] Health Address [address] [place] [address] 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
--- OUTSIDE RECORDS SUMMARY | 2025-02-02 18:26 | XMS_ITS | Encounter Summary ---
Author Organization [facility] Address [address] [place] [address] [place] [address] Care Team Providers Care Support Specialist Name Role Phone Shamir Sadler MD Primary Care Provider [phone] [phone] Encounter Details Date Type Department Care Team (Late st Contact Info) Description 10/11/2019 Lab Requisition [facility] Pathology Lab [address] [place] [address] Natividad Lara MD [address] [facility] [place] [address] Illness, unspecified Social History Tobacco Use Types Packs/Day Years Used Date Smoking Tobacco: Never Smokeless Tobacco: Never Alcohol Use Standard Drinks/Week Comments No 0 (1 standard drink = 0.6 oz pur e alcohol) Comments Unknown Sex and Gender Information Value Date Recorded Sex Assigned at Not on file 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 Care Pathology Lab Received: 10/11/2019 02:29 PM [...] LAB - PATHOLOGY/CYTOLOGY ORDERAB LES Final Result [facility] PATHOLOGY LAB [address] [facility]. [address] [phone] documented in this encounter Visit Diagnoses Diagnosis Illness, unspecified documented in this encounter Care Teams Support Specialist Relationship Specialty Start Date End Date Shamir Sadler MD PCP - General Internal Medicine 12/06/19 documented as of this encounter
--- OUTSIDE RECORDS SUMMARY | 2025-02-02 18:26 | XMS_ITS | Encounter Summary ---
Author Organization [facility] Health Address [address] [place] [address] 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
--- OUTSIDE RECORDS SUMMARY | 2025-02-02 18:26 | XMS_ITS | Encounter Summary ---
Author Organization [facility] Health Address [address] [place] [address] 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
--- OUTSIDE RECORDS SUMMARY | 2025-02-02 18:26 | XMS_ITS | Encounter Summary ---
Author Organization [facility] Address [address] [place] [address] Phone Care Team Providers Care Mine Engineering Supervisor Name Role Phone Shamir Sadler MD Primary Care Provider + Shamir Sadler MD Unavailable Ron Field MD Unavailable [phone] Shamir Khalil MD Unavailable [phone] Jaya Gaming NP Unavailable [phone] Reason for Visit * Reason Onset Date Comments colonoscopy checklist 03/06/2021 Encounter Details Date Type Department Care Team (Late st Contact Info) Description 03/06/2021 Telephone [facility] Surgery [address] [facility] 8th [place] [address] [place] [address] Joanna Menjivar colonoscopy checklist Social History Tobacco [...] on file Legal Sex Female 8:03 PM BRASS CUTTER Gender Identity Female 05/15/2020 2:34 PM BRASS CUTTER Sexual Orientation Straight 05/15/2020 2: 34 PM BRASS CUTTER documented as of this encounter Plan of Treatment Not on file documented as of this encounter Visit Diagnoses Not on filedocumented in this encounter Additional Health Concerns Infection Onset Date Last Indicated Resolved Time MDR gram neg/ESBL 02/17/2019 06/28/2019 COVID: Suspected 01/21/2022 01/21/2022 01/22/2022 3:05 AM BRASS CUTTER COVID: Suspected 01/21/2022 01/21/2022 01/22/2022 5:06 AM BRASS CUTTER COVID: Suspected 05/23/2024 05/23/2024 05/23/2024 4:49 PM CDT documented as of this encounter Care Teams Mine Engineering Supervisor Relationship Specialty Start Date End Date Shamir Sadler MD [address] [facility] [place] [address] PCP - General 06/13/16 Shamir Sadler MD [address] [facility] [address] [place] [address] Referring Physician Internal Medicine 03/25/22 Ron Field MD [address] [place] [address] [facility] [address] [place] [address] Surgeon Orthopedic Surgery 08/06/22 [place] [address] [address] [facility] [address] [place] [address] Consulting Physician Pain Management 09/08/22 [place] [address] [address] [facility] [address] [place] [address] Nurse Practitioner Nurse Practitioner 11/23/23 documented as of this encounter
--- OUTSIDE RECORDS SUMMARY | 2025-02-02 18:26 | XMS_ITS | Clinical Summary ---
Author Organization [facility] Address [address] [place] [address] Care Team Providers Care Culturist Name Role Phone Shamir Sadler MD Primary Care Provider + Shamir Sadler MD Unavailable Ron Field MD Unavailable [phone] Shamir Khalil MD Unavailable Jaya Gaming NP Unavailable [phone] Allergies Active Allergy Reactions Criticality Noted Date Comments Codeine Itching Low Medications PREVIDENT 5000 DRY MOUTH 1.1 % gel Take 1 application (deactivated) by mouth 2 (two) times a day 7 Active multivitamin tabletIndicati ons:Vitamin Deficiency Prevention Take 1 tablet by mouth 2 (two) times a day. 60 tablet 5 8 Active POTASSIUM CHLORIDE ER 20 mEq CR tablet Take 1 tablet (20 mEq total) by mouth daily 0 9 Active cyanocobalamin (Vitamin B-12) 1,000 mcg/mL injection Inject 1 mL (1,000 mcg total) into the muscle as instructed every 30 (thirty) days Active pyridoxine, vitamin B6, 50 mg capsule Take 50 mg by mouth daily Active DULoxetine DR (CYMBALTA) 60 mg capsule Take 1 capsule (60 mg total) by mouth daily 3 Active cevimeline (EVOXAC) 30 mg capsule 4 Active HYDROmorphone, bulk, (DILAUDID) 100 % powder by intrathecal route continuous 0 4 Active traMADoL (ULTRAM) 50 mg tablet Take 1 tablet (50 mg total) by mouth every 6 (six) hours as needed for pain 10 tablet 4 Active Additional Information Patient not taking.Reported on 01/19/2025 methenamine (HIPREX) 1 gram tablet 5 Active memantine (NAMENDA) 5 mg tablet 5 Active mirabegron ER (MYRBETRIQ) 50 mg tablet extended release 24 hr 5 Active omeprazole (PriLOSEC) 20 mg capsule Take 1 capsule (20 mg total) by mouth daily 5 Active solifenacin (VESIcare) 10 mg tablet Take 1 tablet (10 mg total) by mouth daily 5 Active pregabalin (LYRICA) 50 mg capsuleIndicat ions:Lumbar post-laminecto my syndrome,Radic ulopathy, cervical,Cervi susu spinal stenosis Take 1 capsule (50 mg total) by mouth 2 (two) times a day 60 capsule 5 5 02/19/20 25 Active pregabalin (LYRICA) 50 mg capsuleIndicat ions:Lumbar post-laminecto my syndrome,Radic ulopathy, cervical,Cervi susu spinal stenosis Take 1 capsule (50 mg total) by mouth 2 (two) times a day 60 capsule 2 5 01/20/20 25 Discontin ued(Reord er) Active Problems Problem Noted Date Diagnosed Date Urinary frequency 11/24/2023 Small bowel obstruction 09/30/2023 Leukocytosis 09/30/2023 Hypertension 09/30/2023 Chronic pain 09/30/2023 Cervical spinal stenosis 12/11/2022 Radiculopathy, cervical 12/11/2022 Gastroesophageal reflux disease 11/13/2022 Dysphagia 11/13/2022 Major depressive disorder, recurrent episode, mo derate 10/07/2022 Pyelonephritis 09/08/2022 Assessment & Plan (12/07/2024 9:48 PM CDT): > 90 mL/min/1.73 m221:13 10/26/2024 per [facility] Point of care urine was positive for blood, protein, leukocytes Urine culture was obtained and sent to the lab. Will contact patient with results Due to new onset of right CVA tenderness associated with acute cystitis symptoms, will treat For pyelonephritis Orders: POCT urinalysis dipstick Urine culture Urine, clean voided; Future ciprofloxacin (CIPRO) 500 mg tablet; Take 1 tablet (500 mg total) by mouth 2 (two) times a day for 7 days Chronic bilateral low back pain with right-sided [...] (04/25/2022): Added automatically from request for surgery [id number] Chest pain, unspecified type 03/24/2022 09/07/2022 History of MRSA infection 06/11/2021 Marginal ulcer 03/04/2021 08/30/2021 Overview (03/04/2021): Added automatically from request for surgery [id number] Drug-induced diabetes mellitus 01/09/2021 09/07/2022 Disorder of peripheral nervous system 06/01/2020 09/07/2022 Overview (02/26/2021): Added automatically from request for surgery [id number] Mild protein-calorie malnutrition (CMS/HCC) 05/22/2020 08/30/2021 Adhesive [...] (12/14/2017): Added automatically from request for surgery [id number] Cholecystitis 12/14/2017 02/24/2018 Overview (12/14/2017): Added automatically from request for surgery [id number] Morbid obesity 11/14/2017 02/22/2018 Calculus of gallbladder [...] Encounters Date Type Department Care Team Description 01/19/2025 8:00 AM HYDRAULIC PILE HAMMER OPERATOR - 01/19/2025 11:59 PM HYDRAULIC PILE HAMMER OPERATOR Hospital Encounter [facility] [address] [place] [id number] Jaya Gaming NP Lumbar post-laminectomy syndrome (Primary Dx); Presence of intrathecal pump; Radiculopathy, cervical Discharge Disposition: Discharge to home or self care 12/08/2024 Results Follow-Up [facility] [place] [address] [place] [address] Jael Rain NP Urine culture Urine, clean voided 12/07/2024 3:51 PM CDT - 12/07/2024 11:59 PM CDT Hospital Encounter [address] [address] Pyelonephritis Discharge Disposition: Discharge to home or self care 12/07/2024 3:45 PM CDT Office Visit [facility] [place] [address] [place] [address] Shaye Mendoza NP Pyelonephritis (Primary Dx) 12/07/2024 3:35 PM CDT Lab [facility] [address] [address] 11/22/2024 Telephone [facility] [address] [place] [address] [address] [place] [address] Justina Evangelista 11/07/2024 Telephone [facility] [address] [place] [phone] Justina Evangelista 11/03/2024 9:30 AM CDT Office Visit [facility] Medicine Neuro Muscle [address] [facility] 6th [place] [address] [place] [address] Jose Luis Flores MD Polyneuropathy (Primary Dx) from Last 3 Months Immunizations Immunization Administration Dates Next Due Tdap 03/14/2008 ZOSTER LIVE 02/22/2015 Surgical History Surgery Date Site/Laterality Comments APPENDECTOMY 03/16/1972 - 03/15/1973 BACK SURGERY WISDOM TOOTH EXTRACTION 03/16/2011 - 03/15/2012 SKIN LESION EXCISION tongue LAPAROSCOPIC GASTRIC BYPASS 03/16/2017 - 03/15/2018 w/cholecystectomy LAMINECTOMY 03/16/2018 - 03/15/2019 CHOLECYSTECTOMY SPINE SURGERY / 9 PARTIAL HIP ARTHROPLASTY Left INTRATHECAL PUMP [...] Grandchild cyclic neutrope farshad; COPD Mother Charla [place] Other Other 1 No family histo ry of Migraines; Other Other 2 No family histo ry of Coronary artery disease; Other Other 3 No family histo ry of Stroke; Other Other 4 No family histo ry of Osteoporosis; Arthritis Paternal Grandmother Zelda Newton Diabetes Sister Gauri Vallecillo Diabetes type II Sister Gauri Vallecillo Diabete s -Type 2; Other Son Neutropenia; [...] drink = 0.6 oz pur e alcohol) [facility] Utilities Answer Date Recorded In the past 12 months has [employer], gas, oil, or water [employer] threatened to shut off services in your home? No 09/30/2023 Social Connection and Isolation Panel Answer Date Recorded In a typical week, how many times do you talk on the phone with family, friends, or neighbors? More than three times a week 09/30/2023 How often do you get togethe r with friends or relatives? More than three times a week 09/30/2023 How often do you attend chur ch or druze services? More than 4 times per year 09/30/2023 Do you belong to any clubs o r organizations such as shinto groups, unions, fraternal or athletic groups, or [...] place to sleep or slept in a care home (including now)? No 09/08/2022 Housing Stability [...] any time in the past [facility], were you homeless or living in a care home (including now)? No 09/30/2023 Personal Safety Answer Date Recorded Have you ever been in or are you currently in a harmful physical or emotional relationship or is someone making you feel afraid or unsafe? Denies 08/20/2024 Education Answer Date Recorded What is the highest level of school you have completed or the highest degree you have received? Associate degree: academic program 08/04/2022 Comments No Sex and Gender Information Value Date Recorded Sex Assigned at Not on file Legal Sex Female 8:03 PM HYDRAULIC PILE HAMMER OPERATOR Gender Identity Female 05/15/2020 2:34 PM HYDRAULIC PILE HAMMER OPERATOR Sexual Orientation Straight 05/15/2020 2: 34 PM HYDRAULIC PILE HAMMER OPERATOR Occupation Industry Job Start Date Job End [...] Sign Reading Time Taken Comments Blood Pressure 171/101 01/19/2025 8:21 AM HYDRAULIC PILE HAMMER OPERATOR Pulse 79 01/19/2025 8:19 AM HYDRAULIC PILE HAMMER OPERATOR Temperature 36.2 C (97.1 F) 12/07/2024 3:51 PM CDT Respiratory Rate 16 01/19/2025 8:19 AM HYDRAULIC PILE HAMMER OPERATOR Oxygen Saturation 100% 01/19/2025 8:19 AM HYDRAULIC PILE HAMMER OPERATOR Inhaled Oxygen Concentration - - Weight 63 kg (139 lb) 12/07/2024 3:51 PM CDT Height 170.2 cm (5' 7) 12/07/2024 3:51 PM CDT Body Mass Index 21.77 12/07/2024 3:51 PM CDT Plan of Treatment Health Maintenance [...] Visit 65+ 08/29/2023 08/28/2022 Covid-19 Vaccine (4 - 2024-2 6 season) 2024 04/15/2021, 05/02/2020, 04/14/2020 Influenza Vaccine (#1) 2024 Lipid Panel 08/03/2025 08/03/2024, 02/15, 03/14/2022, Additional history exists Breast Cancer Screening-Mammogram 08/17/2025 08/17/2024, 05/04/2023, 05/02/2022, Additional history exists eGFR 12/07/2025 12/07/2024, 0609/2024, 10/22/2023, Additional history exists Fall Risk Assessment 01/19/2026 01/19/2025, 01/02/2021, 12/26/2020, Additional history exists Colon Cancer Screening-Colonoscopy 04/10/2031 04/10/2021, 11/06/2010 Colon Cancer Screening-CT Colonography Discontinued 04/10/2021, 11/06/2010 Colon Cancer Screening-DNA Stool Discontinued 04/10/19, 11/06/2010 Colon Cancer Screening-FIT Discontinued 04/10/2021, Colon Cancer Screening-Sigmoidoscopy Discontinued 04/10/2021, 11/06/2010 Hepatitis C Screening Completed 08/03/2022 Medical Devices Implanted Type Area Sort Line Device Identifier Shelf Expiration Date Model / Serial / Lot Medtronic Synchromed Pain Pump Intrathecal Pain Pump Right: Stomach [employer] [id number] Seamguard Bioabsorbable Reinforcement Staple Line Sterile Latex Free - [id number] Implanted:Qty: 1 on 02/22/2018 by Maureen Valencia MD at [facility] [employer] 07/13/2020 [id number] / / [id number] [employer] [id number] Seamguard Bioabsorbable Reinforcement Staple Line Sterile Latex Free - [id number] Implanted:Qty: 1 on 02/22/2018 by Maureen Valencia MD at [facility] [employer] 08/14/2019 [id number] / / [id number] [employer] [id number] Seamguard Bioabsorbable Reinforcement Staple Line Sterile Latex Free - [id number] Implanted:Qty: 1 on 02/22/2018 by Maureen Valencia MD at [facility] [employer] 08/14/2019 [id number] / / [id number] Med[employer] Inc Synchromed Ii .78in [place] Filter Mesh Pouch Programmable 8637-20 - [id number] - [id number] Implanted:Qty: 1 on 01/23/2022 by Shamir Khalil MD at [facility] Left: Abdomen [employer] 06/28/2023 8637-20 / [id number] / [employer] Inc Tyrx 3.35x3in Large Envelope Absorbable Polyarylate Minocycline [id number] - [id number] Implanted:Qty: 1 on 01/23/2022 by Shamir Khalil MD at [facility] Left: Abdomen [employer] [id number] 11/08/2022 [id number] / / [id number] [employer] Self-Centering 45mm 28mm Hip Femur Head Bipolar Sterile Cristina [id number] - [id number] Implanted:Qty: 1 on 08/04/2022 by Ron Field MD at [facility] Left: Hip [employer] 12/13/2026 [id number] / / [id number] [employer] Articul/Leonel 28mm Hip +1.5mm 02/26 Taper Head Femoral Cocr Sterile Latex Free 1365-11-000 - [id number] Implanted:Qty: 1 on 08/04/2022 by Ron Field MD at [facility] Left: Hip [employer] 05/14/2027 0 / / [id number] [employer] Actis Collar Hip 7 Standard Offset Stem Femoral [id number] - [id number] Implanted:Qty: 1 on 08/04/2022 by Ron Field MD at [facility] Left: Hip [employer] 03/15/2032 [id number] / / [id number] Med[employer]onic Inc Ascenda 4fr .5mm 139.7cm 66cm 2 Piece Inner Lumen Radiopaque 8781 - [id number] Implanted:Qty: 1 on 09/17/2022 by Shamir Khalil MD at [facility] [employer] 06/12/2024 8781 / / [id number] Explanted Type Area Sort Line Device Identifier Shelf Expiration Date Model / Serial / Lot Med[employer]onic Inc Sue 4fr .5mm 114cm 86cm 2 Piece Connector Pin Flexible Closed 8780 - [id number] Implanted:Qty: 1 on 01/23/2022 by Shamir Khalil MD at [facility] Explanted:Qty: 1 on 09/17/2022 by Shamir Khalil MD at [facility] N/A: Spine Thoracic [employer] 01/04/2024 8780 / / [id number] Procedures Procedure Name Priority Date/Time Associated Diagnosis Comments POCT URINALYSIS DIPSTICK Routine 12/07/2024 4:05 PM CDT Pyelonephritis URINE CULTURE Routine 12/07/2024 3:51 PM CDT Pyelonephritis EGFR Routine 12/07/2024 3:37 PM CDT COMPREHENSIVE METABOLIC PANEL Routine 12/07/2024 3:37 PM CDT SCREENING MAMMOGRAM BILATERAL W HERNESTO Schedule Routine, Read Routine (OP Routine) 08/17/2024 9:26 AM CDT Screening mammogram, encounter for HEMOGLOBIN A1C Routine 09/07/2022 3:21 PM CDT HEPATITIS PANEL, ACUTE Routine 08/03/2022 6:56 AM CDT LIPID PANEL Routine 03/14/2022 1:16 PM HYDRAULIC PILE HAMMER OPERATOR Postsurgical malabsorption Bariatric surgery status COLONOSCOPY 04/10/2021 12:46 PM HYDRAULIC PILE HAMMER OPERATOR DIABETES FOOT EXAM Routine 06/09/2016 DIABETES EYE EXAM Routine 03/29/2013 DEXA SCAN Routine 12/04/2009 from Last 3 Months or Most Recently Relevant to Health Maintenance Results * (ABNORMAL) POCT urinalysis dipstick (12/07/2024 4:05 PM CDT) Color, Urine, POC Dark Yellow Clarity, ur, POC Turbid(A) Clear Glucose, ur, POC Negative Negative Bilirubin, ur, POC Negative Negative Ketones, ur, POC Negative Negative Specific [facility], POC 1.020 1.003 - 1.030 Blood, ur, POC Moderate(A) Negative pH, ur, POC 7.0 5.0 - 8.0 Protein, ur, POC 100.(A) Negative Urobilinogen, urine, POC 0.2 0.2 - 1.0 mg/dL Nitrite, ur, POC Negative Negative Leukocytes, ur, POC Small(A) Negative Lot Number [id number] Urine 12/07/2024 4:05 PM CDT Shaye Mendoza NP POINT OF CARE TEST ORDERABLES Final Result * Urine culture Urine, clean voided (12/07/2024 3:51 PM CDT) Report Final Report: Less than 100,000 colonies/mL (clinically insignificant growth based on current clinical standards) Comment:Testing performed by : [facility], [address] [place]., [address] Organism (CLINICALLY INSIGNIFICANT GROWTH KATHIE TRINH Urine, clean voided 12/07/2024 3:51 PM CDT 12/07/2024 11:49 PM CDT Narrative KATHIE TRINH - 12/09/2024 7:56 AM CDT Testing performed by [facility] Microbiology Laboratory ([phone]) Shaye Mendoza NP LAB MICROBIOLOGY - GENERAL OR DERABLES Final Result KATHIE TRINH [address] [place] [address] * eGFR (12/07/2024 3:37 PM CDT) eGFR >90 >=60 mL/min/1. 73 m2 Comment: Interpretive Data [...] Current interpretive data was last reviewed 2021. Testing performed by: [address] [address] Blood 12/07/2024 3:37 PM CDT 12/07/2024 8:51 PM CDT us Shamir Sadler MD LAB BLOOD ORDERABLES Fin al Result KATHIE LOERA ([place]) 1 [facility] Department [place] [address] * (ABNORMAL) Comprehensive metabolic panel (12/07/2024 3:37 PM CDT) Sodium 142 135 - 145 mmol/L Comment:Testing performed by : [address] [address] Potassium, pl 3.0(L) 3.3 - 4.9 mmol/L KATHIE LOERA ([place]) Comment:Testing performed by : [address] [address] Chloride 101 97 - 110 mmol/L KATHIE LOERA ([place]) Comment:Testing performed by : [address], [place]., [address] CO2 29 22 - 32 mmol/L [facility] ([place]) Comment:Testing performed by : [address] [address] Anion gap 12 2 - 15 mmol/L [facility] ([place]) Comment:Testing performed by : [address] [address] BUN 9 6 - 25 mg/dL [facility] ([place]) Comment:Testing performed by : [facility], [address] [place] [address], [address] Creatinine 0.63 0.60 - 1.10 mg/dL [facility] ([place]) Comment:Testing performed by : [address], [address] Glucose 199 70 - 199 mg/dL [facility] ([place]) Comment: Interpretive Data Fasting glucose >/= 126 mg/dl is diagnostic for diabetes. Fasting is defined as no caloric intake for at least 8 hours. Fasting glucose between 100 mg/dl to 125 mg/dl is diagnostic of prediabetes. In a patient with classic symptoms of hyperglycemia or hyperglycemic crisis, a random glucose >/= 200 mg/dl is diagnostic for diabetes. In the absence of unequivocal hyperglycemia, results should be confirmed by repeat testing. The classification and Diagnosis of Diabetes Diabetes Care 202; 46: S19-S40. Current interpretive data was last revised 2022. Testing performed by: [facility], [address] [place] [address]., [address] Calcium 9.0 8.5 - 10.3 mg/dL [facility] ([place]) Comment:Testing performed by : [address] [address] Bilirubin, total 0.5 0.1 - 1.2 mg/dL [facility] ([place]) Comment:Testing performed by : [address] [address] Protein, pl 6.4(L) 6.5 - 8.5 g/dL [facility] ([place]) Comment:Testing performed by : [address], [address] Albumin 3.7 3.5 - 5.0 g/dL [facility] ([place]) Comment:Testing performed by : [facility], [address] [place] [address]., [address] Alk phos 106 40 - 130 Units/L [facility] ([place]) Comment:Testing performed by : [facility], [address] [place] [address]., [address] ALT 20 7 - 45 Units/L [facility] ([place]) Comment:Testing performed by : [facility], [address] [place] [address], [address] AST 35 10 - 45 Units/L [facility] ([place]) Comment:Testing performed by : [facility], [address] [place] [address], [address] Blood 12/07/2024 3:37 PM CDT 12/07/2024 8:36 PM CDT Shamir Sadler MD LAB BLOOD ORDERABLES Fin al Result KATHIE LOERA ([place]) 1 [facility] Department [place] [address] * Screening Mammogram Bilateral W [place] (08/17/2024 [...] IMG MAMMO PROCEDURES Fi nal Result * Hemoglobin A1c (09/07/2022 3:21 PM CDT) Hgb A1C 4.3 4.0 - 5.6 % KATHIE Estimated Average Glucose 77 mg/dL KATHIE TRINH Comment: The ADA recommends reporting an estimated Average Glucose (eAG) with all Hemoglobin A1c results using the equation derived from a study of 507 normal and diabetic adults. Minority populations were underrepresented and children were not included. (Diabetes Care 31:3336-6447, 2008). The eAG is not equivalent to a fasting glucose. Blood 09/07/2022 3:21 PM CDT 09/07/2022 4:12 PM CDT us Vinod Nunez NP LAB BLOOD ORDERABLES Shamika alexis Result [place] [address] [facility] [place] [address] * Hepatitis panel, acute (08/03/2022 6:56 AM CDT) Pathologist [facility] Hep A IgM Nonreactive Nonreactive KATHIE LOERA ([place]) Comment: Interpretive Data: If Hep A IgM Ab is reported as Equivocal, a new sample should be drawn in two weeks for testing. Current interpretive data was last revised on 19. Testing performed by: [address] [address] Hep B core IgM Nonreactive Nonreactive C MANDIER LUZ MARIA ([place]) Comment: Interpretive Data If HepB Core IgM Ab is reported as Equivocal, a new sample should be drawn in two weeks for testing. Current interpretive data was last revised on 19. Testing performed by: [facility], [address] [place] [address]., [address] Hep C Ab Nonreactive Nonreactive [facility] ([place]) Comment: Interpretive Data Nonreactive: Antibodies to [...] last revised on 2019. Testing performed by: [facility], [address] [place] [address]., [address] HepBsAg Nonreactive Nonreactive KATHIE LUZ MARIA ([place]) Comment:Testing performed by : [facility], [address] [place] [address]., [address] Blood 08/03/2022 6:56 AM CDT 08/03/2022 6:25 PM CDT us Ciera Kim MD LAB MICROBIOLOGY - GENERAL ORDER DAREK Final Result KATHIE LOERA ([place]) 1 [facility] Department of Laboratories [place], [place] [id number] * (ABNORMAL) Lipid panel (03/14/2022 1:16 PM HYDRAULIC PILE HAMMER OPERATOR) Cholesterol 150 <200 mg/dL [facility] [...] factors. LDL-C is now calculated using the Roderick-Barry calculation, which is a validated novel method providing better accuracy than the Friedewald equation in the estimation of LDL-C. Roderick SS et al. SHAI. 2013;310(19): 0349-1820 (http://education.[employer].Videolicious/faq/LED457) Chol/HDL ratio 3.1 <5.0 (calc) [facility] Non-HDL, (LDL+VLDL) 101 <130 mg/dL (calc) [facility] Comment: For patients with diabetes plus 1 major ASCVD risk factor, treating to a non-HDL-C goal of <100 mg/dL (LDL-C of <70 mg/dL) is considered a therapeutic option. Blood 03/14/2022 1:16 PM HYDRAULIC PILE HAMMER OPERATOR 03/14/2022 1:16 PM HYDRAULIC PILE HAMMER OPERATOR Narrative [facility] - 03/21/2022 10:22 PM HYDRAULIC PILE HAMMER OPERATOR FASTING:NO FASTING: NO us Maureen Valencia MD LAB BLOOD ORDERABLES Fin al Result MARTINA Araiza-Oh [address] [id number] * COLONOSCOPY (04/10/2021 12:46 PM HYDRAULIC PILE HAMMER OPERATOR) Anatomical Region Laterality Modality Other Narrative Procedure [...] The scope was passed under direct vision.The [id number] was introduced through the anusand advanced to [...] meats, exercise regularly, maintain healthy weight. See [facility] website for moreprevention tips. - Contact Information: During normal business hours (8AM-4PM) - Pleasecall the Nurse Coordinator: [phone]. senior it business analyst physician after hours, weekends andholidays: [phone] and asked for the [place]-Rectalphysician correctional case manager. - Two day prep next time, clears/liquids the days before. Electronically signed by Yury Guerrero MD Yury Guerrero M.D. 04/10/2021 1:44:09 PM Number of Addenda: 0 Note Initiated On: 04/10/2021 12:46 PM CC Letter to: Shamir Sadler M.D. Yury Guerrero MD ENDOSCOPY PROCEDURES Final R esult * DIABETES FOOT EXAM (06/09/2016) Pathologist [facility] Diabetic Foot Exam Unknown Historical Provider HEALTH MAINTENANCE Final Result * DIABETES EYE EXAM (03/29/2013) Pathologist [facility] Diabetic Eye Exam Unknown Historical Provider HEALTH MAINTENANCE Final Result * DEXA SCAN (12/04/2009) [facility] DEXA Scan Normal Anatomical Region Laterality Modality Other Historical Provider HEALTH MAINTENANCE Final Result from Last 3 Months or Most Recently Relevant to Health Maintenance Additional Health Concerns Infection Onset Date Last Indicated MDR gram neg/ESBL 02/17/2019 06/28/2019 Insurance T SENIOR SUPPLEMENT MEDICARE T SENIOR SUPPLEMENT [employer] [place] [facility] MEDICARE [facility] MEDICARE [employer] SENIOR SUPPLEMENT Advance Directives For more information, please contact: [phone] * Full Code (Latest Code Status on [...] 11:25 PM 08/02/2022 11:47 PM Care Teams Culturist Relationship Specialty Start Date End Date Shamir Sadler MD [address] [place] [address] PCP - General 06/13/16 Shamir Sadler MD [address] [facility] [address] [place] [address] Referring Physician Internal Medicine 03/25/22 Ron Field MD [address] [place] [address] [address] [place] [address] Surgeon Orthopedic Surgery 08/06/22 [place] [address] [address] [facility] [address] [place] [address] Consulting Physician Pain Management 09/08/22 [place] [address] [address] [facility] [address] [place] [address] Nurse Practitioner Nurse Practitioner 11/23/23
--- OUTSIDE RECORDS SUMMARY | 2025-02-02 18:26 | XMS_ITS | Clinical Summary ---
Author Organization [employer] [facility] [employer] Address [address] [place] [address] Phone Care Team Providers Care Credit Review Analyst Name Role Phone Shamir Sadler MD Primary Care Provider +1 [phone] Allergies Active Allergy Reactions Criticality Noted Date [...] on file Legal Sex Female 5:44 AM UNIVERSAL GRINDER TOOL Gender Identity Not on file Sexual Orientation [...] 05/31/2020 OSTEOPOROSIS SCREENING 2021 INFLUENZA VACCINE (#1) 2024 RSV VACCINE (60+ or ) (1 - 1-dose 75+ series) 2031 Insurance MEDICARE Care Teams Credit Review Analyst Relationship Specialty Start Date End Date Shamir Sadler MD PCP - General Internal Medicine 09/20/13
--- OUTSIDE RECORDS SUMMARY | 2025-02-02 18:26 | XMS_ITS | Encounter Summary ---
Author Organization [facility] Address [address] [place] [address] [place] [address] Care Team Providers Care Production Material Handler Name Role Phone Shamir Sadler MD Primary Care Provider [phone] [phone] Encounter Details Date Type Department Care Team [...] on file Legal Sex Female 6:24 AM FROZEN FOODS MANAGER Gender Identity Not on file Sexual [...] documented as of this encounter Care Teams Production Material Handler Relationship Specialty Start Date End Date Shamir Sadler MD PCP - General Internal Medicine 12/06/19 documented as of this encounter
--- OUTSIDE RECORDS SUMMARY | 2025-02-02 18:26 | XMS_ITS | Encounter Summary ---
Author Organization [facility] Address [address] [place] [address] 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
--- OUTSIDE RECORDS SUMMARY | 2025-02-02 18:26 | XMS_ITS | Encounter Summary ---
Author Organization [facility] Address [address] [place] [address] Phone Care Team Providers Care Compressor Station Engineer Chief Name Role Phone Shamir Sadler MD Primary Care Provider [phone] Reason for Visit * Reason Comments Medication Refill Encounter Details Date Type Department Care Team (Late st Contact Info) Description 05/03/2023 Refill [facility] [address] [place] [address] Prasanth Mart APRN, [place] MACHINE OPERATOR [address] [place] [address] Medication Refill Social History Tobacco Use Types [...] Health Behavioral Health On track(2022 9:40 AM TRANSFER STATION ATTENDANT) Yes Wilfrid Patel, INDUSTRIAL FABRIC CUTTER Note: I need help coping with family drama and my chronic pain, setting and maintaining healthy boundaries. Goal/Objective: Increase coping skills. Anticipated Time Frame for Goal Completion: 6 months Goal Reviewed with: patient Readiness to change: Ready to change Department associated with goal: [facility] Steps to [...] documented as of this encounter Care Teams Compressor Station Engineer Chief Relationship Specialty Start Date End Date Shamir Sadler MD [address] [place] [address] PCP - General Internal Medicine 08/19/22 documented as of this encounter
--- OUTSIDE RECORDS SUMMARY | 2025-02-02 18:26 | XMS_ITS | Encounter Summary ---
Author Organization [facility] Address [address] [place] [address] 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
--- OUTSIDE RECORDS SUMMARY | 2025-02-02 18:26 | XMS_ITS | Encounter Summary ---
Author Organization [facility] Address [address] [place] [address] 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
--- OUTSIDE RECORDS SUMMARY | 2025-02-02 18:26 | XMS_ITS | Encounter Summary ---
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 Goal/Objective: Increase coping skills. Anticipated Time Frame for Goal Completion: 6 months Goal Reviewed with: patient Readiness to change: Ready to change Department associated with goal: [facility] Steps [...] documented as of this encounter Care Teams Director Corporate Relationship Specialty Start Date End Date Shamir Sadler MD [address] [place] [address] PCP - General Internal Medicine 08/19/22 documented as of this encounter
--- OUTSIDE RECORDS SUMMARY | 2025-02-02 18:26 | XMS_ITS | Encounter Summary ---
Author Organization [facility] Address [address] [place] [address] [place] [address] Care Team Providers Care Solar Sales Specialist Name Role Phone Shamir Sadler MD Primary Care Provider [phone] [phone] Encounter Details Date Type Department Care Team (Late st Contact Info) Description 10/11/2019 Lab Requisition [facility] [address] [place] [address] Natividad Lara MD [address] [facility] [place] [address] Social History Tobacco Use Types Packs/Day Years Used Date Smoking Tobacco: Never Smokeless Tobacco: Never Alcohol Use Standard Drinks/Week Comments No 0 (1 standard drink = 0.6 oz pur e alcohol) Comments Unknown Sex and Gender Information Value Date Recorded Sex Assigned at Not on file 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 11/16/2019 12:39 PM [facility] Clinical History 11/16/2019 12:39 PM [facility] Gross Description Submitted fresh, [...] muscle biopsy. 11/16/2019 12:39 PM [facility] Disclaimer The performance characteristics of all immunohistochemical and indirect immunofluorescence stains (if any) cited in this report were determined by the Histopathology Laboratory of [facility]. Some of these tests were developed by [...] attending (teaching) pathologist. 11/16/2019 12:39 PM CDT [facility] Embedded Images 11/16/2019 12:39 PM CDT [facility] Pathology/Cytolo gy MUSCLE BIOPSY SPECIMEN / Unknown 10/11/2019 10:31 AM CDT 10/11/2019 11:43 AM CDT Natividad Lara MD LAB - PATHOLOGY/CYTOLOGY ORDERAB LES Final Result [facility] [address] [phone] documented in this encounter Visit Diagnoses Not on filedocumented in this encounter Care Teams Solar Sales Specialist Relationship Specialty Start Date End Date Shamir Sadler MD PCP - General Internal Medicine 12/06/19 documented as of this encounter
[2025-02-02 18:29] LABS: EDUAAPPEAR Clear; EDUABILI Negative (Negative); EDUABLOOD 1+ (Negative); EDUACOLOR1 Yellow; EDUAGLUCOSE Negative (Negative); EDUAKETONE Negative (Negative); EDUALEUKO 1+ (Negative); EDUANITRATE Negative (Negative); EDUAPH 7.0; EDUAPROTEIN Negative (Negative); EDUASPGRAVITY 1.025; EDUAUROBILI 0.2
== END 2025-02-02 19:03 | disposition home or self-care (01) ==
PROVIDERS: Emergency Provider Registered Nurse; PCP Internal Medicine
DX: N39.0 Urinary tract infection, site not specified (principal); G62.9 Polyneuropathy, unspecified; K21.9 Gastro-esophageal reflux disease without esophagitis; Z98.84 Bariatric surgery status
CPT/HCPCS: 81003; 87086; 99213; G0463